=== PATIENT | female | born 1950 | race Caucasian/White ===

== ENCOUNTER → 2016-11-19 | Outpatient (CLI) | payer BC ==
--- NOTE | 2016-11-23 09:05 | MM ---
Reason for exam: screening (asymptomatic). Baseline mammogram. History: Patient is postmenopausal and is nulliparous. Benign excisional biopsy of the right breast, 2006. Physical Findings: Nurse did not find any significant physical abnormalities on exam. MG Screening Mammo w CAD Bilateral CC and MLO view(s) were taken. Prior study comparison: December 26, 1996, bilateral special view mammogram. The breast tissue is heterogeneously dense. This may lower the sensitivity of mammography. Finding: There are indeterminate calcifications in the upper outer quadrant of the left breast. These results were verbally communicated with the patient and result sheet given to the patient on 11/19/16. ASSESSMENT: Incomplete: need additional imaging evaluation, BI-RAD 0 RECOMMENDATION: Special view mammogram of the left breast. [facility] will attempt to contact patient to return for supplemental views.
--- NOTE | 2016-11-23 09:07 | MM ---
Reason for exam: additional evaluation requested from abnormal screening. Last mammogram was performed 19 years and 11 months ago. History: Patient is postmenopausal and is nulliparous. Benign excisional biopsy of the right breast, 2006. Physical Findings: Breast exam preformed at baseline screening. MG Work Up Mamm w CAD LT ML, MLO with magnification, and CC with magnification view(s) were taken of the left breast. Finding: There are intermediate concern, suspicious calcifications in the upper outer quadrant of the left breast. New finding. These results were verbally communicated with the patient and result sheet given to the patient on 11/19/16. ASSESSMENT: Suspicious, BI-RAD 4 RECOMMENDATION: Stereotactic core biopsy of the left breast. Called Dr. Reyes with mammographic findings and has scheduled an appointment for the patient for 11/26/[address] Arriaza. PRELIMINARY REPORT CALLED AND FAXED TO DR. ARRIAZA ON 11/23/16 AT 300/TP.
== END | disposition home or self-care (01) ==
LOC: RADMAMWWP 09:57
PROVIDERS: ATTEND Family Medicine
DX: Z12.31 Encounter for screening mammogram for malignant neoplasm of breast (principal)
CPT/HCPCS: G0202; G0206

== ENCOUNTER → 2016-12-24 | Day surgery (SDC) | payer BC ==
[~2016-12-24] MED LIST: BACITRACIN OINT 1 EACH PACKET TOPICAL ONE; LIDOCAINE 1%-EPI 1:100,000 20 ML VIAL ONE
--- NOTE | 2016-12-24 12:00 | MM ---
Stereotactic core biopsy left breast. HISTORY: Microcalcifications. The calcifications in question within the left breast were targeted by the undersigned. The examination was performed by the surgeon. Specimen radiograph demonstrates numerous calcifications within the specimen submitted. Post procedural mammogram demonstrates appropriate deployment of radiopaque clip marker. The patient tolerated the procedure well and left the department in stable condition. Pathology results are pending. IMPRESSION: Successful stereotactic core biopsy left breast with pathology results pending. Pathology Results: Benign BREAST, LEFT, CORE BIOPSY: FIBROCYSTIC CHANGES INCLUDING FOCAL FIBROADENOMATOID HYPERPLASIA WITH SCLEROSIS AND CALCIFICATIONS, FIBROSIS, AND SCLEROSING ADENOSIS WITH MICROCALCIFICATIONS. Recommendation Follow up mammogram of the left breast in 6 months. GAYE
== END ==
LOC: RADMAMWWP 09:24
PROVIDERS: ATTEND Surgery
DX: N62 Hypertrophy of breast (principal); N60.22 Fibroadenosis of left breast; N60.32 Fibrosclerosis of left breast; R92.8 Other abnormal and inconclusive findings on diagnostic imaging of breast; N64.89 Other specified disorders of breast; Z88.2 Allergy status to sulfonamides
CPT/HCPCS: 19081; A4648; 88305

== ENCOUNTER 2016-12-31 15:25 | Emergency (ER) | payer BC ==
--- NOTE | 2016-12-31 16:08 | XR ---
EXAMINATION TYPE: XR Hip LT and AP Pelvis DATE OF EXAM: 12/31/2016 4:04 PM COMPARISON: NONE HISTORY: Pain TECHNIQUE: A single AP view of the pelvis is obtained. Two views of the left hip are obtained. FINDINGS: There is no acute fracture/dislocation evident in the pelvis. The hip and sacroiliac join ts appear symmetric and unremarkable. The overlying soft tissue appears unremarkable. Two views of left hip and pelvis show no acute fracture or dislocation. No focal lytic or sclerotic lesion seen in the proximal left femur. Mild joint space narrowing. Degenerative changes lumbar spin e. Probable calcified fibroid of the uterus. The overlying soft tissue is unremarkable. IMPRESSION: There is no acute fracture or dislocation in the pelvis or left hip.
--- NOTE | 2016-12-31 16:26 | ED ---
General Adult HPI - General Chief complaint: Back Pain/Injury Stated complaint: Back/Hip pain Time Seen by Provider: 12/31/16 15:43 Source: patient, RN notes reviewed Mode of arrival: wheelchair Limitations: no limitations - History of Present Illness Initial comments: Patient 66-year-old female who presents emergency room today with chief complaint of increased lower back pain radiating to the left hip. Patient does admit to this pain has been off and on now for the last 6 weeks. Doesn't follow up with family doctor and did have a MRI performed of her back. She states she was told there are some degenerative changes. States been using ibuprofen 800 mg little relief the symptoms. She denies any other complaints or symptoms at this time. Denies any bowel or bladder incontinence or retention. Denies any saddle anesthesia. Patient denies any recent fever, chills, shortness of breath, chest pain, abdominal pain, nausea or vomiting, numbness or tingling, dysuria or hematuria, constipation or diarrhea, headaches or visual changes, or any other complaints. - Related Data Home Medications Medication Instructions Recorded Confirmed Cyanocobalamin (Vitamin B-12) 1,000 mcg PO DAILY 12/31/16 12/31/16 [Vitamin B-12] Meloxicam 15 mg PO DAILY 12/31/16 12/31/16 Metoprolol Succinate [Toprol XL] 50 mg PO DAILY 12/31/16 12/31/16 Multivits-Min/Iron/FA/Lutein 1 tab PO DAILY 12/31/16 12/31/16 [Centrum Silver Women Tablet] Tetrahydrozoline 0.05% Ophth 1 drop BOTH EYES QID PRN 12/31/16 12/31/16 [Visine Eye Drops] amLODIPine [Norvasc] 10 mg PO DAILY 12/31/16 12/31/16 Previous Rx's Medication Instructions Recorded Hydrocodone/Acetaminophen [[place] 1 each PO Q6HR PRN #20 tab 12/31/16 5-325] Allergies Allergy/AdvReac Type Severity Reaction Status Date / Time Sulfa (Sulfonamide Allergy Anaphylaxis Verified 12/31/16 16:18 Antibiotics) Review of Systems ROS Statement: Those systems with pertinent positive or pertinent negative responses have been documented in the HPI. ROS Other: All systems not noted in ROS Statement are negative. Past Medical History Past Medical History: Hypertension Additional Past Medical History / Comment(s): chronic back pain, bilateral arm fx. History of Any Multi-Drug Resistant Organisms: None Reported Past Surgical History: No Surgical Hx Reported Additional Past Surgical History / Comment(s): (R) arm surgery Past Psychological History: No Psychological Hx Reported Smoking Status: Never smoker Past Alcohol Use History: None Reported General Exam - General Exam Comments Initial Comments: General: The patient is awake and alert, in no distress, and does not appear acutely ill. Eye: Pupils are equal, round and reactive to light, extra-ocular movements are intact. No nystagmus. There is normal conjunctiva bilaterally. No signs of icterus. Ears, nose, mouth and throat: There are moist mucous membranes and no oral lesions. Neck: The neck is supple, there is no tenderness or JVD. Cardiovascular: There is a regular rate and rhythm. No murmur, rub or gallop is appreciated. Respiratory: Lungs are clear to auscultation, respirations are non-labored, breath sounds are equal. No wheezes, stridor, rales, or rhonchi. Musculoskeletal: Normal ROM. Tender to palpation T12 with mild tenderness down into the lumbar spine. Negative logroll maneuver. Strength 5/5. Sensation intact. Pulses equal bilaterally 2+. Neurological: A&O x 3. CN II-XII intact, There are no obvious motor or sensory deficits. Coordination appears grossly intact. Speech is normal. Skin: Skin is warm and dry and no rashes or lesions are noted. Psychiatric: Cooperative, appropriate mood & affect, normal judgment. Limitations: no limitations Course Vital Signs 12/31/16 15:40 Temperature 97.0 F L Pulse Rate 101 H Respiratory 18 Rate Blood Pressure 167/87 O2 Sat by Pulse 97 Oximetry Medical Decision Making - Medical Decision Making patient's MRI performed on 11/26/2016 was reviewed does show degenerative changes. Patient's x-ray of the left hip is negative for any acute abnormalities. Patient will be discharged home advised short prescription of pain medication to follow-up with radiologic electronic specialist for her back. Disposition Clinical Impression: Lumbar radiculopathy, acute Disposition: HOME SELF-CARE Condition: Good Instructions: Lumbar Radiculopathy (ED) Additional Instructions: Please follow-up with orthopedics over the next 2-5 days. Please return to emergency room symptoms increase or worsen or for any other concerns. Prescriptions: Hydrocodone/Acetaminophen [Leighton 5-325] 1 each PO Q6HR PRN #20 tab PRN Reason: Pain Referrals: Priscilla Reyes MD [Primary Care Provider] - 1-2 days Inez Phillips DO [Doctor of Osteopathic Medicine] - 1-2 days Time of Disposition: 16:24
[2016-12-31 16:36] VITALS: BP 152/78; PULSE 98; RESP 16; TEMP 97.2
== END 2016-12-31 16:30 | disposition home or self-care (01) ==
LOC: EC 15:25
DX: M54.16 Radiculopathy, lumbar region (principal); M25.552 Pain in left hip; I10 Essential (primary) hypertension; G89.29 Other chronic pain; Z79.1 Long term (current) use of non-steroidal anti-inflammatories (NSAID); Z79.899 Other long term (current) drug therapy; Z88.2 Allergy status to sulfonamides
CPT/HCPCS: 73502; 99284

== ENCOUNTER 2020-10-31 20:42 | Emergency (ER) | payer BC, MEDICARE ==
[2020-10-31 20:57] VITALS: TEMP 97.6
[2020-10-31] MEDS ORDERED: ONDANSETRON ODT 4 MG TAB PO STA (23:43)
--- NOTE | 2020-11-01 00:19 | ED ---
Psych HPI <Jose A Lopez - Last Filed: 11/01/20 05:19> - General Source: patient, EMS Mode of arrival: EMS <Krystle Storm - Last Filed: 11/01/20 19:16> - General Chief Complaint: Psychiatric Symptoms Stated Complaint: Mental Health/ETOH Time Seen by Provider: 10/31/20 21:58 - History of Present Illness Initial Comments: Patient is a 70-year-old female with history of alcohol abuse, presenting to the emergency department via EMS for psych evaluation. Patient's roommate called EMS stating that patient "needs to sober up" and that she was "going to jump off the porch." Patient denies any of this. She denies any suicidal or homicidal thoughts. She states she has been drinking a lot tonight. She denies any chest pain or shortness of breath, no nausea or vomiting. She has no other complaints at this time. Upon arrival to the ER, her vital signs are stable. (Krystle Storm) - Related Data Home Medications Medication Instructions Recorded Confirmed Cyanocobalamin (Vitamin B-12) 1,000 mcg PO DAILY 12/31/16 12/31/16 [Vitamin B-12] Meloxicam 15 mg PO DAILY 12/31/16 12/31/16 Metoprolol Succinate [Toprol XL] 50 mg PO DAILY 12/31/16 12/31/16 Multivit-Min/Iron/Folic/Lutein 1 tab PO DAILY 12/31/16 12/31/16 [Centrum Silver Women Tablet] Tetrahydrozoline 0.05% Ophth 1 drop BOTH EYES QID PRN 12/31/16 12/31/16 [Visine Eye Drops] amLODIPine [Norvasc] 10 mg PO DAILY 12/31/16 12/31/16 Previous Rx's Medication Instructions Recorded Hydrocodone/Acetaminophen [[place] 1 each PO Q6HR PRN #20 tab 12/31/16 5-325] Allergies Allergy/AdvReac Type Severity Reaction Status Date / Time Sulfa (Sulfonamide Allergy Anaphylaxis Verified 10/31/20 20:57 Antibiotics) Review of Systems ROS Other: All systems not noted in ROS Statement are negative. <Jose A Lopez - Last Filed: 11/01/20 05:19> ROS Other: All systems not noted in ROS Statement are negative. <Krystle Storm - Last Filed: 11/01/20 19:16> ROS Statement: Those systems with pertinent positive or pertinent negative responses have been documented in the HPI. Past Medical History Past Medical History: Hypertension Additional Past Medical History / Comment(s): chronic back pain, bilateral arm fx. History of Any Multi-Drug Resistant Organisms: None Reported Past Surgical History: No Surgical Hx Reported Additional Past Surgical History / Comment(s): (R) arm surgery Past Psychological History: No Psychological Hx Reported Smoking Status: Never smoker Past Alcohol Use History: Daily Past Drug Use History: None Reported <Krystle Storm - Last Filed: 11/01/20 19:16> General Exam <Krystle Storm - Last Filed: 11/01/20 19:16> - General Exam Comments Initial Comments: GENERAL: Patient is well-developed and well-nourished. Patient is nontoxic and in no acute distress, does appear intoxicated. HEAD: Atraumatic, normocephalic. EYES: Pupils equal round and reactive to light, extraocular movements intact, sclera anicteric, conjunctiva are normal. Eyelids were unremarkable. ENT: TMs normal, nares patent, oropharynx clear without exudates. Moist mucous me mbranes. NECK: Normal range of motion, supple without lymphadenopathy or JVD. LUNGS: Unlabored respirations. Breath sounds clear to auscultation bilaterally and equal. No wheezes rales or rhonchi. HEART: Regular rate and rhythm without murmurs, rubs or gallops. ABDOMEN: Soft, nontender, normoactive bowel sounds. No guarding, no rebound. No masses appreciated. : Deferred MUSCULOSKELETAL: Normal extremities with adequate strength and normal range of motion, no pitting or edema. No clubbing or cyanosis. NEUROLOGICAL: Patient is alert and oriented x 3. Motor and sensory are also intact. Cranial nerves II through XII grossly intact. Symmetrical smile. Normal speech, normal gait. PSYCH: Intoxicated SKIN: Warm, Dry, normal turgor, no rashes or lesions noted. (Krystle Storm) Course Vital Signs 10/31/20 11/01/20 11/01/20 20:47 00:12 05:32 Temperature 97.6 F Pulse Rate 133 H 111 H 82 Respiratory 20 20 16 Rate Blood Pressure 176/122 143/95 148/97 O2 Sat by Pulse 98 96 98 Oximetry Medical Decision Making <Krystle Storm - Last Filed: 11/01/20 19:16> - Medical Decision Making 70-year-old female here for medical intoxication, stating she'll throw himself off her porch. Patient arrived intoxicated. Patient was handed to Dr. Lopez at shift change, 3am. She was evaluated by EPS, discharged home. (Krystle Storm) Disposition Is patient prescribed a controlled substance at d/c from ED?: No <Jose A Lopez - Last Filed: 11/01/20 05:19> <Krystle Storm - Last Filed: 11/01/20 19:16> Clinical Impression: Alcohol intoxication, Mood disorder Disposition: HOME SELF-CARE Condition: Fair Instructions (If sedation given, give patient instructions): Alcohol Intoxication (ED) Referrals: Priscilla Reyes MD [Primary Care Provider] - 1-2 days
[2020-11-01] MEDS ORDERED: LORazepam 1 MG TAB PO STA (02:27)
[2020-11-01 06:51] VITALS: BP 148/97; PULSE 82; RESP 16
== END 2020-11-01 05:33 | disposition home or self-care (01) ==
LOC: EC 20:42
DX: F10.129 Alcohol abuse with intoxication, unspecified (principal); F39 Unspecified mood [affective] disorder; I10 Essential (primary) hypertension; Z79.1 Long term (current) use of non-steroidal anti-inflammatories (NSAID)
CPT/HCPCS: 82075; 99283

== ENCOUNTER → 2021-03-25 | Outpatient (CLI) | payer MEDICARE ==
--- NOTE | 2021-03-26 07:32 | NM ---
EXAMINATION TYPE: NM bone scan whole body DATE OF EXAM: 03/25/2021 COMPARISON: NONE HISTORY: Low back pain thoracic pain Delayed whole-body scanning was performed following the injection of 23.2 mCi Tc 99m MDP. Images wer e acquired 3.5 hours post injection. FINDINGS: There is increased radiotracer accumulation within the distal radius and ulna on the right. Correlate for acute fracture. Multiple focal areas of increased uptake are within the anterior rib ends bilaterally. This often is associated with posttraumatic change. There is increased radiotracer accumulation in the T12 region vertebral body. Correlate with plain fi lm. Acute compression deformity can't be considered. There is uptake within the mid and lower sternum. This is nonspecific. Posttraumatic and metastatic d isease can be considered. Other some mild uptake at the shoulders and within the posterior right and left lower cervical spine as well as some mild uptake in the region of the first carpal metacarpal junctions bilaterally joint spaces of the hands. These findings are most likely degenerative in nature. IMPRESSION: 1. Abnormal uptake in the region of T12, right radius and ulna. Consider plain film correlation. Acut e fractures at these levels could be considered. 2. Uptake at the anterior rib ends bilaterally may be posttraumatic in nature. 3. Uptake within the sternum is nonspecific. Significant trauma and metastatic disease could be consi dered. Plain film correlation is recommended.
== END | disposition home or self-care (01) ==
LOC: RADNMMAIN 12:01
PROVIDERS: ATTEND Physical Medicine & Rehabilitation
DX: M54.5 Low back pain (principal); M54.6 Pain in thoracic spine
CPT/HCPCS: 78306; A9503

== ENCOUNTER 2021-07-23 14:29 | Inpatient (IN) | payer MEDICARE ==
[2021-07-23 14:59] LABS: Basophils % (A) 0 %; Eosinophils # (A) 0.1 k/uL (0-0.7); Eosinophils % (A) 1 %; HGB 16.8 gm/dL (11.4-16.0); Lymphocytes # (A) 0.4 k/uL (1.0-4.8); Lymphocytes % (A) 2 %; MCH 33.6 pg (25.0-35.0); MCHC 35.7 g/dL (31.0-37.0); Mean Platelet Volume 7.3; Monocytes # (A) 0.4 k/uL (0-1.0); Monocytes % (A) 2 %; Neutrophils # (A) 15.7 k/uL (1.3-7.7); Neutrophils % (A) 94 %; Platelet Count 328 k/uL (150-450); RDW 12.8 % (11.5-15.5); WBC 16.6 k/uL (3.8-10.6)
[2021-07-23 15:09] LABS: ALT 39 U/L (4-34); AST 47 U/L (14-36); African American GFR (CKD) >90 (>60 ml/min/1.73 sqM); Albumin 4.2 g/dL (3.5-5.0); Alkaline Phosphatase 151 U/L (38-126); Anion Gap 14 mmol/L; Blood Urea Nitrogen 20 mg/dL (7-17); Calcium 9.5 mg/dL (8.4-10.2); Carbon Dioxide 24 mmol/L (22-30); Chloride 88 mmol/L (98-107); Glucose 216 mg/dL (74-99); Magnesium 1.9 mg/dL (1.6-2.3); Non-African American GFR(CKD) >90 (>60 ml/min/1.73 sqM); Sodium 126 mmol/L (137-145); Total Bilirubin 1.6 mg/dL (0.2-1.3)
[2021-07-23 15:13] LABS: Potassium 2.3 mmol/L (3.5-5.1)
[2021-07-23] MEDS ORDERED: SODIUM CHLORIDE 0.9% 1,000 ML IV STA (15:14)
[2021-07-23] MEDS ORDERED: POTASSIUM CHLORIDE 40 MEQ in WATER FOR INJECTION 1 100ML.BAG IVPB STA (15:14)
[2021-07-23 15:19] LABS: Partial Thromboplastin Time 22.8 sec (22.0-30.0); Prothrombin Time 10.8 sec (9.0-12.0)
--- NOTE | 2021-07-23 15:30 | ED ---
General Adult HPI - General Chief complaint: Chest Pain Stated complaint: Chest Pain Source: patient Mode of arrival: wheelchair Limitations: no limitations - History of Present Illness Initial comments: Dictation was produced using [employer] dictation software. please excuse any grammatical, word or spelling errors. Chief Complaint: 71-year-old female presents with chest pain and back pain History of Present Illness: Is a 71-year-old female presents to the emergency department for chest pain and back pain. She states that her symptoms are separate. Over the last week she's been having episodic chest pain and back pain. She states that her main complaint today is the back pain. Patient has history of chronic back pain requiring spinal injections. She has history of scoliosis. Patient states she does have some sharp pain. No shortness of breath. No numbness no paresthesias to the extremities. Patient states that her back pain is different feeling as though it is more severe than usual but in her typical location. Denies any fever. No nausea vomiting. Chest pain she reports is mild nonradiating with no associated diaphoresis. She reports that her back pain is in the mid thoracic back radiates across to both sides. The ROS documented in this emergency department record has been reviewed and confirmed by me. Those systems with pertinent positive or negative responses have been documented in the HPI. All other systems are other negative and/or noncontributory. PHYSICAL EXAM: General Impression: Alert and oriented x3, not in acute distress HEENT: Normocephalic atraumatic, extra-ocular movements intact, pupils equal and reactive to light bilaterally, mucous membranes moist. Cardiovascular: Heart regular rate and rhythm Chest: Able to complete full sentences, no retractions, no tachypnea Abdomen: abdomen soft, non-tender, non-distended, no organomegaly Musculoskeletal: Pulses present and equal in all extremities, no peripheral edema, tenderness to palpation of the mid to lower thoracic back, severe scoliosis Motor: no focal deficits noted Neurological: CN II-XII grossly intact, no focal motor or sensory deficits noted Skin: Intact with no visualized rashes Psych: Normal affect and mood ED course: 71-year-old well-appearing female presents to the emergency department for chest pain and back pain. Her chest pain is atypical with typical presentation. She has chronic history of back pain. States her pain is more severe than usual. Vital signs upon arrival shows heart rate of 120, rest of vital signs within acceptable limits. Initial EKG shows sinus tachycardia with ST depressions and lateral precordial leads. That EKG was performed at 1410. Repeat EKG at 1518 shows similar findings without any dynamic changes. There is no old EKG for comparison. Patient was in the waiting room for approximately 40 minutes. Advanced triage protocol was ordered. She was finally brought back to the room at approximately 3:20 PM. Advanced triage protocol labs shows leukocytosis 16.6. Coag panel is unremarkable. Metabolic panel shows an 126, potassium 2.3. Rest of labs within acceptable limits.Chart review was performed. Patient has an MRI done 11/26/2016. There is mild to advanced degenerative disc disease in the thoracic and lumbar spine. EKG interpretation: Ventricular rate 124, sinus tachycardia,. 152, QRS 94, QTC 453. No CO prolongation, no QTC prolongation. No old EKG for comparison in our electronic medical record. There does appear to be ST depressions in lateral precordial leads. Repeat EKG performed at 1518 shows no dynamic changes. Overall this EKG is concerning for cardiac ischemia. Laboratory evaluation obtained. Mild leukocytosis 16.6. Likely stress leukocytosis. Coag panel is negative. Metabolic panel shows potassium 2.3. Sodium 126. Restless within acceptable limits. Patient states that her pain was severe radiated to the back. Thoracic aorta angiogram ordered showing no dissection but did show multilevel degenerative changes. She also had dilated fluid-filled esophagus concerning for distal obstruction. Chest x-ray is unremarkable. Patient reevaluated bedside at 7:30 PM 5 beats stable medical condition. She reports that her symptoms are significantly improved with IV analgesics. Patient will be admitted observation for serial troponins, car diology consultation and cardiac monitoring. Patient will be admitted to Dr. Flores. Patient given aspirin. - Related Data Home Medications Medication Instructions Recorded Confirmed Metoprolol Succinate [Toprol XL] 50 mg PO DAILY 12/31/16 07/23/21 amLODIPine [Norvasc] 10 mg PO DAILY 12/31/16 07/23/21 Ibuprofen [Motrin Ib] 800 mg PO Q8H PRN 07/23/21 07/23/21 oxyCODONE-APAP 10-325MG [Percocet 1 tab PO QID 07/23/21 07/23/21 10-325 mg] Allergies Allergy/AdvReac Type Severity Reaction Status Date / Time Sulfa (Sulfonamide Allergy Anaphylaxis Verified 07/23/21 16:01 Antibiotics) Review of Systems ROS Statement: Those systems with pertinent positive or pertinent negative responses have been documented in the HPI. ROS Other: All systems not noted in ROS Statement are negative. Past Medical History Past Medical History: Hypertension Additional Past Medical History / Comment(s): chronic back pain, bilateral arm fx. History of Any Multi-Drug Resistant Organisms: None Reported Past Surgical History: No Surgical Hx Reported Additional Past Surgical History / Comment(s): (R) arm surgery Past Psychological History: No Psychological Hx Reported Smoking Status: Never smoker Past Alcohol Use History: Daily Past Drug Use History: None Reported General Exam Limitations: no limitations Course Vital Signs 07/23/21 07/23/21 14:33 18:14 Temperature 97.5 F L Pulse Rate 120 H 107 H Respiratory 19 18 Rate Blood Pressure 153/120 173/113 O2 Sat by Pulse 99 95 Oximetry Medical Decision Making - Lab Data Result diagrams: 07/23/21 14:50 07/23/21 14:50 Lab Results 07/23/21 07/23/21 07/23/21 Range/Units 14:50 14:50 14:50 WBC 16.6 H (3.8-10.6) k/uL RBC 5.00 (3.80-5.40) m/uL Hgb 16.8 H (11.4-16.0) gm/dL Hct 47.0 H (34.0-46.0) % MCV 94.0 (80.0-100.0) fL MCH 33.6 (25.0-35.0) pg MCHC 35.7 (31.0-37.0) g/dL RDW 12.8 (11.5-15.5) % Plt Count 328 (150-450) k/uL MPV 7.3 Neutrophils % 94 % Lymphocytes % 2 % Monocytes % 2 % Eosinophils % 1 % Basophils % 0 % Neutrophils # 15.7 H (1.3-7.7) k/uL Lymphocytes # 0.4 L (1.0-4.8) k/uL Monocytes # 0.4 (0-1.0) k/uL Eosinophils # 0.1 (0-0.7) k/uL Basophils # 0.0 (0-0.2) k/uL PT 10.8 (9.0-12.0) sec INR 1.0 (<1.2) APTT 22.8 (22.0-30.0) sec Sodium 126 L (137-145) mmol/L Potassium 2.3 L* (3.5-5.1) mmol/L Chloride 88 L (98-107) mmol/L Carbon Dioxide 24 (22-30) mmol/L Anion Gap 14 mmol/L BUN 20 H (7-17) mg/dL Creatinine 0.63 (0.52-1.04) mg/dL Est GFR (CKD-EPI)AfAm >90 (>60 ml/min/1.73 sqM) Est GFR (CKD-EPI)NonAf >90 (>60 ml/min/1.73 sqM) Glucose 216 H (74-99) mg/dL Calcium 9.5 (8.4-10.2) mg/dL Magnesium 1.9 (1.6-2.3) mg/dL Total Bilirubin 1.6 H (0.2-1.3) mg/dL AST 47 H (14-36) U/L ALT 39 H (4-34) U/L Alkaline Phosphatase 151 H (38-126) U/L Troponin I (0.000-0.034) ng/mL Total Protein 7.0 (6.3-8.2) g/dL Albumin 4.2 (3.5-5.0) g/dL 07/23/21 Range/Units 14:50 WBC (3.8-10.6) k/uL RBC (3.80-5.40) m/uL Hgb (11.4-16.0) gm/dL Hct (34.0-46.0) % MCV (80.0-100.0) fL MCH (25.0-35.0) pg MCHC (31.0-37.0) g/dL RDW (11.5-15.5) % Plt Count (150-450) k/uL MPV Neutrophils % % Lymphocytes % % Monocytes % % Eosinophils % % Basophils % % Neutrophils # (1.3-7.7) k/uL Lymphocytes # (1.0-4.8) k/uL Monocytes # (0-1.0) k/uL Eosinophils # (0-0.7) k/uL Basophils # (0-0.2) k/uL PT (9.0-12.0) sec INR (<1.2) APTT (22.0-30.0) sec Sodium (137-145) mmol/L Potassium (3.5-5.1) mmol/L Chloride (98-107) mmol/L Carbon Dioxide (22-30) mmol/L Anion Gap mmol/L BUN (7-17) mg/dL Creatinine (0.52-1.04) mg/dL Est GFR (CKD-EPI)AfAm (>60 ml/min/1.73 sqM) Est GFR (CKD-EPI)NonAf (>60 ml/min/1.73 sqM) Glucose (74-99) mg/dL Calcium (8.4-10.2) mg/dL Magnesium (1.6-2.3) mg/dL Total Bilirubin (0.2-1.3) mg/dL AST (14-36) U/L ALT (4-34) U/L Alkaline Phosphatase (38-126) U/L Troponin I <0.012 (0.000-0.034) ng/mL Total Protein (6.3-8.2) g/dL Albumin (3.5-5.0) g/dL Disposition Clinical Impression: Chest pain Disposition: ADMITTED IP TO THIS HOSP Condition: Fair Referrals: Kisha Rodriguez DO [Primary Care Provider] - 1-2 days
--- NOTE | 2021-07-23 15:39 | XR ---
EXAMINATION TYPE: XR chest 2V DATE OF EXAM: 07/23/2021 COMPARISON: 05/21/2016 INDICATION: Low back pain TECHNIQUE: Frontal and lateral views of the chest are obtained. FINDINGS: The heart size is normal. The pulmonary vasculature is normal. The lungs are clear. Hiatal hernia is present. Scoliosis of the thoracolumbar junction. In the lateral projection there is some wedge deformity of t he midthoracic vertebral levels. This was present on the 2015 examination appears similar. IMPRESSION: 1. Compression deformities appear old within the mid thoracic region. 2. No acute pulmonary process.
[2021-07-23] MEDS: POTASSIUM CHLORIDE 20 MEQ in WATER FOR INJECTION 1 100ML.BAG IVPB SCH ×2 (15:44→18:13)
[2021-07-23] MEDS ORDERED: METOPROLOL SUCCINATE (ER) 50 MG TAB.ER.24H PO STA (18:46)
[2021-07-23] MEDS ORDERED: amLODIPine 10 MG TAB PO STA (18:46)
--- NOTE | 2021-07-23 19:00 | CT ---
EXAMINATION TYPE: CT angio thor/abd pel aorta DATE OF EXAM: 07/23/2021 COMPARISON: None HISTORY: chest and back pain CT DLP: 724.2 mGycm Automated exposure control for dose reduction was used. Contrast: 100 mL [id number] Technique: Axial images 5 mm thick sections. Reconstructed images in coronal and sagittal planes. FINDINGS: Ascending thoracic aorta at the level of main pulmonary artery is 3.9 cm remaining pulmonary the bifu rcation is 2.5 cm. The aorta tapers normally through its visualized course. No dissections are eviden t. Iliac vessels and femoral vessels are patent to the extent of the field of view. There is a dilated fluid-filled esophagus. Evaluation for distal stenosis and achalasia could be perf ormed. Portion of the thyroid visualized is normal. No enlarged mediastinal or hilar nodes are eviden t. Coronary artery calcifications present. CT sections of the abdomen and pelvis appear unremarkable. Some fatty infiltration of liver may be pr esent. The adrenal glands are normal. Kidneys are normal. 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 There is prominence of the transverse colon. Urinary bladder is visualized normal. Uterus and adnexa are normal. Note is made of compression deformities within the mid thoracic and thoracolumbar junctio n regions. IMPRESSION: 1. NO AORTIC DISSECTION OR ANEURYSM. 2. DILATED FLUID-FILLED ESOPHAGUS. CONSIDER ADDITIONAL EVALUATION TO EVALUATE FOR DISTAL OBSTRUCTION.
[2021-07-23] MEDS ORDERED: HYDROmorphone 0.5 MG/0.5 ML SYRINGE IVP STA (19:05)
[2021-07-23] MEDS ORDERED: ONDANSETRON 4 MG/2 ML VIAL IVP STA (19:06)
[2021-07-23] MEDS ORDERED: ASPIRIN 81 MG PO STA (19:26)
[2021-07-23] MEDS ORDERED: ONDANSETRON 4 MG/2 ML VIAL IVP PRN (19:30)
[2021-07-23] MEDS ORDERED: NALOXONE 0.4 MG/ML 1 ML VIAL IV PRN (19:30)
[2021-07-24] MEDS: SODIUM CHLORIDE 0.9% 1,000 ML IV SCH ×2 (02:41→19:29)
[2021-07-24] MEDS: MORPHINE SULFATE 4 MG/ML SYRINGE IVP PRN ×2 (05:04→11:41)
[2021-07-24] MEDS ORDERED: METOPROLOL SUCCINATE (ER) 50 MG TAB.ER.24H PO SCH (09:00)
[2021-07-24] MEDS ORDERED: amLODIPine 10 MG TAB PO SCH (09:00)
[2021-07-24] MEDS: METOPROLOL TARTRATE 50 MG TAB PO SCH ×2 (09:38→21:43)
[2021-07-24] MEDS: amLODIPine 5 MG TAB PO SCH (09:38)
--- NOTE | 2021-07-24 10:00 | ECHOF ---
Referral Reason:LV function, chest pain MEASUREMENTS -------- HEIGHT: 157.5 cm WEIGHT: 49.9 kg BP: 135/94 RVIDd: 2.1 cm (< 3.3) IVSd: 1.1 cm (0.6 - 1.1) LVIDd: 4.4 cm (3.9 - 5.3) LVPWd: 1.1 cm (0.6 - 1.1) IVSs: 1.4 cm LVIDs: 2.8 cm LVPWs: 1.7 cm LA Diam: 2.7 cm (2.7 - 3.8) LAESV Index (A-L): 22.44 ml/m Ao Diam: 3.4 cm (2.0 - 3.7) AV Cusp: 2.1 cm (1.5 - 2.6) MV EXCURSION: 9.588 mm (> 18.000) MV EF SLOPE: 21 mm/s (70 - 150) EPSS: 0.7 cm MV E Arsen: 0.47 m/s MV DecT: 279 ms MV A Arsen: 0.91 m/s MV E/A Ratio: 0.52 RAP: 5.00 mmHg RVSP: 25.72 mmHg FINDINGS -------- Sinus rhythm. This was a technically adequate study. The left ventricular size is normal. There is borderline concentric left ventricular hypertrophy. Overall left ventricular systolic function is low-normal with, an EF between 50 - 55 %. Basal post erior LV wall motion is dyskinetic. Basal inferior LV wall motion is dyskinetic. The right ventricle is normal in size. Normal LA size by volume 22+/-6 ml/m2. The right atrium is normal in size. Interatrial and interventricular septum intact. The aortic valve is trileaflet, and appears structurally normal. No aortic stenosis or regurgitation. Joth-ut-dipewxar mitral regurgitation is present. Mild tricuspid regurgitation present. Right ventricular systolic pressure is normal at < 35 mmHg. There is no pulmonic regurgitation present. The aortic root size is normal. Normal inferior vena cava with normal inspiratory collapse consistent with estimated right atrial pre ssure of 5 mmHg. There is no pericardial effusion. CONCLUSIONS -------- 1. The left ventricular size is normal. 2. There is borderline concentric left ventricular hypertrophy. 3. Overall left ventricular systolic function is low-normal with, an EF between 50 - 55 %. 4. Basal posterior LV wall motion is dyskinetic. 5. Basal inferior LV wall motion is dyskinetic. 6. The aortic valve is trileaflet, and appears structurally normal. No aortic stenosis or regurgitati on. 7. Hxfd-bj-kqbysmcd mitral regurgitation is present. 8. Mild tricuspid regurgitation present. 9. There is no pericardial effusion. [employer] ADMINISTRATOR: Gita Jerez RDCS
--- NOTE | 2021-07-24 10:01 | P.CRDCN ---
History of Present Illness History of present illness: HISTORY OF PRESENTING ILLNESS This is a pleasant 71-year-old female past medical history significant for hypertension, chronic back pain follows with a pain specialists and is prescribed Percocet. 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 We have been asked to see in consultation for chest pain. Patient presents to the emergency department with complaints of lightheadedness, dizziness, chest pain, nausea, vomiting, diarrhea and back pain. Her symptoms started 1 week ago, she started to have diarrhea and nausea and vomiting, she felt lightheaded. Her symptoms somewhat resolved on their own. Yesterday, she had increased sharp back pain, unrelieved by her Percocet. She also had midsternal dull/throbbing chest pain. Non-radiating. Non-exertional. She did have associated shortness of breath, nausea and vomiting. She continued to feel lightheaded, states she felt "disoriented". Her chest pain is reproducible and increases with deep breathing. She denies any specific alleviated factors to the chest pain. She denies eating any abnormal food for her. She denies syncope, orthopnea, PND, palpitations, or abdominal pain. Her chest pain lasted all day yesterday it is now resolved. Denies history of [place], stroke, coronary artery disease or diabetes. She denies tobacco use, alcohol use, or illicit drug use. No family history of CAD. Her mother and father both had history of hypertension and strokes. On admission, patient found to be hyponatremic and hypokalemic. DIAGNOSTICS EKG reveals sinus tachycardia, heart rate 124, some mild ST depression in lateral leads, Left axis deviation, Poor R wave progression, no prior EKG to compare. No significant ST-T wave abnormalities Thoracic CT revealed dilated fluid filled esophagus. No dissection or aneurysm. Telemetry tracings indicate sinus mechanism, heart rate 90s. Chest xray old mid thoracic region compression deformities. No acute cardiopulmonary process. Laboratory reviewed, troponin negative 2, sodium 126, potassium 2.3, BUN 20, serum creatinine 0.6, magnesium 1.9, AST 47, ALT 39, alkaline phosphatase 151, WBC 16, hemoglobin 16, platelets 328 Echocardiogram revealed an EF of 5055 percent, basal posterior and basal. LV wall dyskinetic, mild to moderate mitral regurgitation, mild tricuspid regurgitation. Current home medications include Percocet, amlodipine 10 mg daily, metoprolol succinate 50 mg daily, when necessary ibuprofen REVIEW OF SYSTEMS At the time of my exam: CONSTITUTIONAL: Denies fever or chills. CARDIOVASCULAR: + chest pain,+ shortness of breath,Denies orthopnea, PND or palpitations. RESPIRATORY: Denies cough. GASTROINTESTINAL: Denies abdominal pain, Positive diarrhea, +nausea +vomiting. MUSCULOSKELETAL: Denies myalgias. NEUROLOGIC: Denies numbness, tingling, headache or weakness. ENDOCRINE: Denies fatigue, weight change, polydipsia or polyurina. GENITOURINARY: Denies burning, hematuria or urgency with micturation. HEMATOLOGIC: Denies history of anemia or bleeding. PHYSICAL EXAMINATION Blood pressure 135/94, heart rate 91, afebrile, saturations greater than 92% on room air CONSTITUTIONAL: No apparent distress. HEENT: Head is normocephalic. Pupils are equal, round. Sclerae anicteric. Mucous membranes of the mouth are moist. No JVD. No carotid bruit. CHEST EXAMINATION: Lungs are clear to auscultation. There is chest wall tenderness is noted on palpation and deep breathing HEART EXAMINATION: Regular rate and rhythm. S1, S2 heard. No murmurs, gallops or rub. ABDOMEN: Soft, nontender. Positive bowel sounds. EXTREMITIES: 2+ peripheral pulses, no lower extremity edema and no calf tenderness. SKIN:warm, dry NEUROLOGIC EXAMINATION: Patient is awake, alert and oriented x3. ASSESSMENT Chest pain, atypical, reproducible on exam Back pain Nausea, vomiting, diarrhea Hyponatremia Hypokalemia History of hypertension Sinus tachycardia CT thoracic revealed dilated fluid-filled esophagus concerning for distal obstruction PLAN -An acute coronary event has been ruled out with no EKG evidence of ischemia and negative cardiac enzymes. -Obtain 2D echocardiogram and doppler study to assess cardiac structure and function. -Change to metoprolol tartrate 50mg BID and Decrease amlodipine to 5mg daily -Replace electrolytes per protocol -Monitor BMP -We will not perform a stress test at this time, patient can follow up with Dr. Smith in the office and further discussion of stress test can be discussed. Thank you kindly for this consultation. Nurse Practitioner note has been reviewed, I agree with a documented findings and plan of care. Patient was seen and examined. Past Medical History Past Medical History: Hypertension Additional Past Medical History / Comment(s): chronic back pain, bilateral arm fx. History of Any Multi-Drug Resistant Organisms: None Reported Past Surgical History: No Surgical Hx Reported Additional Past Surgical History / Comment(s): bilateral arm surgery Past Anesthesia/Blood Transfusion Reactions: No Reported Reaction Past Psychological History: No Psychological Hx Reported Smoking Status: Never smoker Past Alcohol Use History: Daily Past Drug Use History: None Reported Medications and Allergies Home Medications Medication Instructions Recorded Confirmed Type Metoprolol Succinate [Toprol XL] 50 mg PO DAILY 12/31/16 07/23/21 History amLODIPine [Norvasc] 10 mg PO DAILY 12/31/16 07/23/21 History Ibuprofen [Motrin Ib] 800 mg PO Q8H PRN 07/23/21 07/23/21 History oxyCODONE-APAP 10-325MG [Percocet 1 tab PO QID 07/23/21 07/23/21 History 10-325 mg] Allergies Allergy/AdvReac Type Severity Reaction Status Date / Time Sulfa (Sulfonamide Allergy Anaphylaxis Verified 07/23/21 16:01 Antibiotics) Physical Exam Vitals: Vital Signs Temp Pulse Pulse Resp BP BP Pulse Ox 07/24/21 04:56 131/90 07/24/21 02:20 98.6 F 98 16 152/100 96 07/24/21 00:28 101 H 07/23/21 22:02 98.6 F 101 H 16 138/98 96 07/23/21 20:37 112 H 16 149/104 99 07/23/21 18:14 107 H 18 173/113 95 07/23/21 14:33 97.5 F L 120 H 19 153/120 99 Intake and Output 07/23/21 07/24/21 07/24/21 22:59 06:59 14:59 Other: Weight 49.895 kg Results 07/23/21 14:50 07/24/21 05:21 Cardiac Enzymes 07/23/21 07/23/21 Range/Units 14:50 14:50 AST 47 H (14-36) U/L Troponin I <0.012 (0.000-0.034) ng/mL Coagulation 07/23/21 Range/Units 14:50 PT 10.8 (9.0-12.0) sec APTT 22.8 (22.0-30.0) sec CBC 07/23/21 Range/Units 14:50 WBC 16.6 H (3.8-10.6) k/uL RBC 5.00 (3.80-5.40) m/uL Hgb 16.8 H (11.4-16.0) gm/dL Hct 47.0 H (34.0-46.0) % Plt Count 328 (150-450) k/uL Comprehensive Metabolic Panel 07/23/21 Range/Units 14:50 Sodium 126 L (137-145) mmol/L Potassium 2.3 L* (3.5-5.1) mmol/L Chloride 88 L (98-107) mmol/L Carbon Dioxide 24 (22-30) mmol/L BUN 20 H (7-17) mg/dL Creatinine 0.63 (0.52-1.04) mg/dL Glucose 216 H (74-99) mg/dL Calcium 9.5 (8.4-10.2) mg/dL AST 47 H (14-36) U/L ALT 39 H (4-34) U/L Alkaline Phosphatase 151 H (38-126) U/L Total Protein 7.0 (6.3-8.2) g/dL Albumin 4.2 (3.5-5.0) g/dL Current Medications Generic Name Dose Route Start Last Admin Trade Name Freq PRN Reason Stop Dose Admin Amlodipine Besylate 10 mg 07/24/21 09:00 Amlodipine 10 Mg Tab PO DAILY NORRIS Sodium Chloride 1,000 mls @ 20 mls/hr 07/23/21 19:30 07/24/21 02:41 Saline 0.9% IV 20 mls/hr .Q24H NORRIS Administration Metoprolol Succinate 50 mg 07/24/21 09:00 Metoprolol Succinate (Er) 50 Mg Tab.Er.24h PO DAILY NORRIS Morphine Sulfate 4 mg 07/24/21 04:30 07/24/21 05:04 Morphine Sulfate 4 Mg/Ml Syringe IVP 4 mg Q6HR PRN Administration Pain Naloxone HCl 0.2 mg 07/23/21 19:30 Naloxone 0.4 Mg/Ml 1 Ml Vial IV Q2M PRN Opioid Reversal Ondansetron HCl 4 mg 07/23/21 19:30 Ondansetron 4 Mg/2 Ml Vial IVP Q8HR PRN Nausea And Vomiting Intake and Output 07/23/21 07/24/21 07/24/21 22:59 06:59 14:59 Other: Weight 49.895 kg 07/23/21 14:50 07/23/21 14:50
[2021-07-24] MEDS ORDERED: POTASSIUM CHLORIDE 20 MEQ in WATER FOR INJECTION 1 100ML.BAG IVPB STA (11:04)
[2021-07-24] MEDS ORDERED: PANTOPRAZOLE 40 MG/10 ML VIAL IVP SCH (11:15)
[2021-07-24] MEDS: POTASSIUM CHLORIDE 20 MEQ in WATER FOR INJECTION 2 100ML.BAG IVPB SCH ×2 (11:37→13:53)
[2021-07-24] MEDS: POTASSIUM CHLORIDE ER 20 MEQ TAB.ER PO SCH ×3 (12:47→15:11)
[2021-07-24 13:33] VITALS: BMI 20.1
[2021-07-24 14:23] LABS: African American GFR (CKD) 120.7 (60.0-200.0); Anion Gap 18.7 mmol/L (10.00-18.00); BUN/Creat Ratio 24.41 Ratio (12.00-20.00); Blood Urea Nitrogen 10.4 mg/dL (9.0-27.0); Calcium 8.5 mg/dL (8.7-10.3); Carbon Dioxide 19.3 mmol/L (20.0-27.5); Non-African American GFR(CKD) 104.1 (60.0-200.0); Potassium 2.3 mmol/L (3.5-5.5)
[2021-07-24] MEDS: oxyCODONE-APAP 10-325MG 1 EACH TAB PO SCH ×3 (15:11→21:43)
--- NOTE | 2021-07-25 02:04 | P.HPIM ---
History of Present Illness H&P Date: 07/24/21 Chief Complaint: chest pain Elizabeth Lay is a 71 yo F with PMH of chronic low back pain on percocet, hypertension who presented to the ED after experiencing chest pain and mid- thoracic back pain over the past week. She complains her symptoms started as nausea, vomiting and diarrhea and then yesterday progressed dull substernal chest pain and thoracic back pain with associated shortness of breath. She did throw up again and then felt lightheaded and dizzy so came to the ED. She does not smoke cigarettes. Denies previous history of heart disease. On presentation pt tachycardic and hypertensive, WBC 16k, Na 126, K 2.6, Cr 0.6, AST 47, COVID negative. CXR and CT thoracic aorta no acute process. Review of Systems All systems: negative Constitutional: Reports malaise, Reports weakness, Denies chills, Denies fever Eyes: denies blurred vision, denies pain Ears, nose, mouth and throat: Denies headache, Denies sore throat Cardiovascular: Reports chest pain, Denies shortness of breath Respiratory: Denies cough Gastrointestinal: Reports nausea, Reports vomiting, Denies abdominal pain, Denies diarrhea Genitourinary: Denies dysuria, Denies hematuria Musculoskeletal: Denies myalgias Integumentary: Denies pruritus, Denies rash Neurological: Denies numbness, Denies weakness Psychiatric: Denies anxiety, Denies depression Endocrine: Denies fatigue, Denies weight change Past Medical History Past Medical History: Hypertension Additional Past Medical History / Comment(s): chronic back pain, bilateral arm fx. History of Any Multi-Drug Resistant Organisms: None Reported Past Surgical History: No Surgical Hx Reported Additional Past Surgical History / Comment(s): bilateral arm surgery Past Anesthesia/Blood Transfusion Reactions: No Reported Reaction Past Psychological History: No Psychological Hx Reported Smoking Status: Never smoker Past Alcohol Use History: Daily Past Drug Use History: None Reported Medications and Allergies Home Medications Medication Instructions Recorded Confirmed Type Metoprolol Succinate [Toprol XL] 50 mg PO DAILY 12/31/16 07/23/21 History amLODIPine [Norvasc] 10 mg PO DAILY 12/31/16 07/23/21 History Ibuprofen [Motrin Ib] 800 mg PO Q8H PRN 07/23/21 07/23/21 History oxyCODONE-APAP 10-325MG [Percocet 1 tab PO QID 07/23/21 07/23/21 History 10-325 mg] Allergies Allergy/AdvReac Type Severity Reaction Status Date / Time Sulfa (Sulfonamide Allergy Anaphylaxis Verified 07/23/21 16:01 Antibiotics) Physical Exam Vitals: Vital Signs Temp Pulse Resp BP Pulse Ox 07/24/21 20:50 98.0 F 100 20 113/81 95 07/24/21 15:39 16 07/24/21 14:01 98.3 F 87 16 112/80 98 07/24/21 07:00 98.3 F 91 18 135/94 95 07/24/21 04:56 131/90 07/24/21 02:20 98.6 F 98 16 152/100 96 Intake and Output 07/24/21 07/24/21 07/25/21 14:59 22:59 06:59 Intake Total 300 260 Balance 300 260 Intake: Intake, IV Titration 60 Amount Sodium Chloride 0.9% 1, 60 000 ml @ 20 mls/hr IV . Q24H [facility] Rx#:[id number] Oral 300 200 Other: Voiding Method Toilet # Voids 1 1 Weight 49.895 kg General: well nourished, well developed, NAD. Vitals reviewed Eyes: PERRL, EOMI, conjunctiva normal HENT: normocephalic, mucus membranes moist Neck: supple, no JVD Lungs: normal respiratory effort, no wheezes or rales CV: Regular rate and rhythm, no murmur. Peripheral pulses 2+ Abdomen: soft, nondistended, no organomegaly Lymph: no cervical or axillary LAD Skin: warm and dry. Neuro: A&Ox3, normal mood and affect Results CBC & Chem 7: 07/23/21 14:50 07/24/21 17:10 Labs: Abnormal Lab Results - Last 24 Hours (Table) 07/24/21 07/24/21 Range/Units 05:21 05:45 Sodium 130 L (135-145) mmol/L Potassium 2.2 L* 2.3 L* (3.5-5.5) mmol/L Chloride 92 L (96-109) mmol/L Carbon Dioxide 19.3 L (20.0-27.5) mmol/L Anion Gap 18.70 H (10.00-18.00) mmol/L Creatinine 0.4 L (0.6-1.5) mg/dL BUN/Creatinine Ratio 24.41 H (12.00-20.00) Ratio Glucose 116 H (70-110) mg/dL Calcium 8.5 L (8.7-10.3) mg/dL Thrombosis Risk Factor Assmnt - Choose All That Apply Each Risk Factor Represents 2 Points: Age 61-74 years Thrombosis Risk Factor Assessment Total Risk Factor Score: 2 Thrombosis Risk Factor Assessment Level: Low Risk Assessment and Plan Plan: 1. Chest pain. ACS ruled out. Cardiology consulted for further evaluation. Echo ordered 2. Hypovolemic hyponatremia. Hypokalemia. Suspect due to vomiting and diarrhea. Replete electrolytes, IV fluids 3. HTN. Continue Norvasc 4. Chronic low back pain. Continue home percocet, morphine for breakthrough
[2021-07-25 03:32] VITALS: RESP 18; TEMP 98.1
[2021-07-25] MEDS ORDERED: PANTOPRAZOLE 40 MG TABLET PO SCH (07:30)
[2021-07-25] MEDS: METOPROLOL TARTRATE 50 MG TAB PO SCH (08:26)
[2021-07-25] MEDS: oxyCODONE-APAP 10-325MG 1 EACH TAB PO SCH (08:27)
[2021-07-25] MEDS: amLODIPine 5 MG TAB PO SCH (08:27)
[2021-07-25 08:54] VITALS: BP 122/85; PULSE 96
[2021-07-25] MEDS ORDERED: HEPARIN SODIUM,PORCINE/PF 5,000 UNIT/0.5 ML SYRINGE SQ SCH (09:00)
[2021-07-25] MEDS ORDERED: ATORVASTATIN 20 MG TAB PO SCH (09:00)
[2021-07-25] MEDS ORDERED: ASPIRIN 81 MG PO SCH (09:00)
[2021-07-25] MEDS ORDERED: METOPROLOL TARTRATE 50 MG TAB PO SCH (09:00)
--- NOTE | 2021-07-25 10:20 | P.DS ---
Providers Date of admission: 07/24/21 11:32 Expected date of discharge: 07/25/21 Attending physician: Toro Flores MD Consults: 07/23/21 19:30 Consult Physician Routine Consulting Provider: Deejay Cordon Consult Reason/Comments: chest pain Do you want consulting provider notified?: Yes Primary care physician: Kisha Rodriguez [facility] Course: Final Diagnoses 1. Chest pain. ACS ruled out per cardiology 2. Hypovolemic hyponatremia. Hypokalemia. Suspect due to vomiting and diarrhea. Resolved 3. HTN. 4. Chronic low back pain. Hospital course:Elizabeth Lay is a 71 yo F with PMH of chronic low back pain on percocet, hypertension who presented to the ED after experiencing chest pain and mid-thoracic back pain over the past week. She complains her symptoms started as nausea, vomiting and diarrhea and then yesterday progressed dull substernal chest pain and thoracic back pain with associated shortness of breath. She did throw up again and then felt lightheaded and dizzy so came to the ED. She does not smoke cigarettes. Denies previous history of heart disease. On presentation pt tachycardic and hypertensive, WBC 16k, Na 126, K 2.6, Cr 0.6, AST 47, COVID negative. CXR and CT thoracic aorta no acute process. Received multiple potassium supplements, potassium now within normal limits, or 0.2. Magnesium yesterday 1.8, current magnesium level pending. Evaluated by cardiology, recommending further follow-up outpatient to discuss potential stress test. Echo reported low normal LV function, EF 50-55%, basal posterior and inferior LV wall motion dyskinetic ,[id number] mitral regurgitation. Significant clinical improvement. Denies chest pain, palpitations or shortness of breath. Pain improved, has not required morphine since midday yesterday, currently controlled on Percocet. Patient reports she's previously scheduled to see Dr. Phillips from orthopedic spine next week, which patient was encouraged to keep. Patient will be discharged home today in a stable condition with guarded prognosis The impression and plan of care has been dictated as directed. : I performed a history and examination of this patient, discussed the same with the dictator. I agree with the dictator's note ,documented as a scribe. Any additional findings or plans will be noted. Patient Condition at Discharge: Stable Plan - Discharge Summary Discharge Rx Participant: No New Discharge Prescriptions: New Atorvastatin [Lipitor] 20 mg PO DAILY 30 Days #30 tab Metoprolol Tartrate [Lopressor] 50 mg PO TID 30 Days #90 tab amLODIPine [Norvasc] 5 mg PO DAILY 30 Days #30 tab Ondansetron Odt [Zofran Odt] 4 mg PO Q8HR PRN #21 tab PRN Reason: Nausea Aspirin 81 mg PO DAILY 30 Days #30 tab Continue oxyCODONE-APAP 10-325MG [Percocet 10-325 mg] 1 tab PO QID Ibuprofen [Motrin Ib] 800 mg PO Q8H PRN PRN Reason: Pain Discontinued amLODIPine [Norvasc] 10 mg PO DAILY Metoprolol Succinate [Toprol XL] 50 mg PO DAILY Discharge Medication List Ibuprofen [Motrin Ib] 800 mg PO Q8H PRN 07/23/21 [History] oxyCODONE-APAP 10-325MG [Percocet 10-325 mg] 1 tab PO QID 07/23/21 [History] Aspirin 81 mg PO DAILY 30 Days #30 tab 07/25/21 [Rx] Atorvastatin [Lipitor] 20 mg PO DAILY 30 Days #30 tab 07/25/21 [Rx] Metoprolol Tartrate [Lopressor] 50 mg PO TID 30 Days #90 tab 07/25/21 [Rx] Ondansetron Odt [Zofran Odt] 4 mg PO Q8HR PRN #21 tab 07/25/21 [Rx] amLODIPine [Norvasc] 5 mg PO DAILY 30 Days #30 tab 07/25/21 [Rx] Follow up Appointment(s)/Referral(s): Karthik Smith MD [STAFF PHYSICIAN] - 1 Week (Office will call with appointment date and time.) Toro Flores MD [STAFF PHYSICIAN] - 3 Days Inez Phillips DO [Doctor of Osteopathic Medicine] - 1 Week (Patient states already previously scheduled)
--- NOTE | 2021-07-25 10:25 | P.PN ---
Subjective HISTORY OF PRESENTING ILLNESS This is a pleasant 71-year-old female past medical history significant for hypertension, chronic back pain follows with a pain specialists and is prescribed Percocet. 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 We have been asked to see in consultation for chest pain. Patient presents to the emergency department with complaints of lightheadedness, dizziness, chest pain, nausea, vomiting, diarrhea and back pain. Her symptoms started 1 week ago, she started to have diarrhea and nausea and vomiting, she felt lightheaded. Her symptoms somewhat resolved on their own. Yesterday, she had increased sharp back pain, unrelieved by her Percocet. She also had midsternal dull/throbbing chest pain. Non-radiating. Non-exertional. She did have associated shortness of breath, nausea and vomiting. She continued to feel lightheaded, states she felt "disoriented". Her chest pain is reproducible and increases with deep breathing. She denies any specific alleviated factors to the chest pain. She denies eating any abnormal food for her. She denies syncope, orthopnea, PND, palpitations, or abdominal pain. Her chest pain lasted all day yesterday it is now resolved. Denies history of ND, stroke, coronary artery disease or diabetes. She denies tobacco use, alcohol use, or illicit drug use. No family history of CAD. Her mother and father both had history of hypertension and strokes. On admission, patient found to be hyponatremic and hypokalemic. DIAGNOSTICS EKG reveals sinus tachycardia, heart rate 124, some mild ST depression in lateral leads, Q waves inferiorly, Left axis deviation, Poor R wave progression, no prior EKG to compare. 07/25/2021: Patient seen and examined at bedside, denies any chest pain or shortness of breath. Echocardiogram reviewed and revealed an EF of 5055 percent, basal posterior and basal inferior LV wall dyskinetic, mild to moderate mitral regurgitation, mild tricuspid regurgitation. Potassium 2-4.2 and magnesium 1.9. She is currently maintained on amlodipine 5 mg daily, metoprolol titrate 50 mg BID. Telemetry reviewed patient sinus mechanism, heart rate 90s-low 100s. PHYSICAL EXAMINATION Blood pressure 122/85, heart 96, afebrile, saturations greater than 92% on room air CONSTITUTIONAL: No apparent distress. HEENT: Neck Supple. No JVD. CHEST EXAMINATION: Lungs are clear to auscultation. HEART EXAMINATION: Regular rate and rhythm. S1, S2 heard. No murmurs, gallops or rub. ABDOMEN: Soft, nontender. Positive bowel sounds. EXTREMITIES: 2+ peripheral pulses, no lower extremity edema and no calf tenderness. NEUROLOGIC EXAMINATION: Patient is awake, alert and oriented x3. 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 Recommend starting aspirin 81mg daily, atorvastatin 20mg daily -Increase metoprolol tartrate 50mg TID and continue amlodipine to 5mg daily -Recommend follow up with Dr. Smith in the office in 1 week and further testing can be discussed. -Patient is stable from a cardiology perspective to be discharged home today. Thank you kindly for this consultation. Nurse Practitioner note has been reviewed, I agree with a documented findings and plan of care. Patient was seen and examined. Objective - Vital Signs Vital signs: Vital Signs Temp 98.1 F 07/25/21 07:00 Pulse 96 07/25/21 07:00 Resp 18 07/25/21 07:44 BP 122/85 07/25/21 07:00 Pulse Ox 97 07/25/21 07:00 Intake & Output 07/24/21 07/25/21 07/25/21 18:59 06:59 18:59 Intake Total 300 740 240 Balance 300 740 240 Weight 49.895 kg Intake: Intake, IV Titration 300 Amount Sodium Chloride 0.9% 1, 300 000 ml @ 20 mls/hr IV . Q24H [facility] Rx#:[id number] Oral 300 440 240 Other: Voiding Method Toilet # Voids 1 2 - Labs CBC & Chem 7: 07/23/21 14:50 07/24/21 17:10 Labs: Abnormal Lab Results - Last 24 Hours (Table) 07/24/21 07/24/21 Range/Units 05:21 05:45 Sodium 130 L (135-145) mmol/L Potassium 2.2 L* 2.3 L* (3.5-5.5) mmol/L Chloride 92 L (96-109) mmol/L Carbon Dioxide 19.3 L (20.0-27.5) mmol/L Anion Gap 18.70 H (10.00-18.00) mmol/L Creatinine 0.4 L (0.6-1.5) mg/dL BUN/Creatinine Ratio 24.41 H (12.00-20.00) Ratio Glucose 116 H (70-110) mg/dL Calcium 8.5 L (8.7-10.3) mg/dL
[2021-07-25 10:49] LABS: African American GFR (CKD) 114.5 (60.0-200.0); Albumin 3.2 g/dL (3.8-4.9); Albumin/Globulin Ratio 1.68 (1.60-3.17); Anion Gap 9.4 mmol/L (10.00-18.00); BUN/Creat Ratio 30.2 Ratio (12.00-20.00); Blood Urea Nitrogen 15.1 mg/dL (9.0-27.0); Calcium 8.8 mg/dL (8.7-10.3); Carbon Dioxide 19.6 mmol/L (20.0-27.5); Globulin 1.9 g/dL (1.6-3.3); Non-African American GFR(CKD) 98.8 (60.0-200.0); Potassium 3.8 mmol/L (3.5-5.5); Total Bilirubin 0.8 mg/dL (0.30-1.20); Total Protein 5.1 g/dL (6.2-8.2)
[2021-07-25 16:40] LABS: Chol/HDL Ratio 1.71 Ratio; LDL Cholesterol,Calculated 29.8 mg/dL (0.0-131.0); VLDL Calculation 14.46 mg/dL (5.00-40.00)
== END 2021-07-25 12:40 | disposition home or self-care (01) | DRG 313 ==
LOC: EC 14:29 → 6NMEDSUR 19:31 → OBSVTOIN 07-24 11:32
PROVIDERS: ADMIT Family Medicine; ATTEND Family Medicine
DX: R07.89 Other chest pain (principal); E87.1 Hypo-osmolality and hyponatremia; E86.1 Hypovolemia; M41.9 Scoliosis, unspecified; I10 Essential (primary) hypertension; Z20.822 Contact with and (suspected) exposure to COVID-19; I08.1 Rheumatic disorders of both mitral and tricuspid valves; I25.2 Old myocardial infarction; K22.2 Esophageal obstruction; M51.36 Other intervertebral disc degeneration, lumbar region; R19.7 Diarrhea, unspecified; R11.10 Vomiting, unspecified; R00.0 Tachycardia, unspecified; I25.10 Atherosclerotic heart disease of native coronary artery without angina pectoris; D72.829 Elevated white blood cell count, unspecified; E87.6 Hypokalemia; G89.29 Other chronic pain; Z79.891 Long term (current) use of opiate analgesic; Z79.899 Other long term (current) drug therapy; Z88.2 Allergy status to sulfonamides; Z87.81 Personal history of (healed) traumatic fracture
CPT/HCPCS: 36415; 71046; 71275; 74174; 80048; 80053; 80061; 83735; 84132; 84443; 84484; 85025; 85610; 85730; 87635; 93005; 93306; 96361; 96365; 96375; 99285

== ENCOUNTER 2021-11-05 22:29 | Emergency (ER) | payer MEDICARE ==
[2021-11-05] MEDS ORDERED: SODIUM CHLORIDE 0.9% 1,000 ML IV ONE (22:42)
[2021-11-05] MEDS ORDERED: THIAMINE 100 MG/ML 2 ML VIAL IVP STA (22:42)
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
[2021-11-05 23:23] LABS: HCT 37.3 % (34.0-46.0); HGB 12.9 gm/dL (11.4-16.0); MCH 32.7 pg (25.0-35.0); MCHC 34.6 g/dL (31.0-37.0); MCV 94.7 fL (80.0-100.0); Platelet Count 420 k/uL (150-450); RBC 3.94 m/uL (3.80-5.40); RDW 12.6 % (11.5-15.5); WBC 6.2 k/uL (3.8-10.6)
[2021-11-05 23:33] LABS: Albumin 3.4 g/dL (3.5-5.0); Calcium 8.4 mg/dL (8.4-10.2); Total Bilirubin 0.9 mg/dL (0.2-1.3); Total Protein 6.3 g/dL (6.3-8.2)
[2021-11-05 23:44] LABS: Potassium 2.7 mmol/L (3.5-5.1)
[2021-11-05] MEDS ORDERED: POTASSIUM CHLORIDE ER 20 MEQ TAB.ER PO STA (23:47)
[2021-11-05 23:50] LABS: Eosinophils # (M) 0.19 k/uL (0-0.7); Lymphocytes # (M) 3.35 k/uL (1.0-4.8); Monocytes # (M) 0.19 k/uL (0-1.0); Neutrophils # (M) 2.48 k/uL (1.3-7.7); Neutrophils % (M) 40 %; Nucleated Red Blood Cells 0 /100 WBC (0-0); Total Cells Counted 100
[2021-11-06] MEDS ORDERED: POTASSIUM CHLORIDE 10 MEQ in WATER FOR INJECTION 1 100ML.BAG IVPB STA (00:19)
[2021-11-06] MEDS: MAGNESIUM SULFATE-D5W PMX 1 GM in DEXTROSE/WATER 1 100ML.BAG IVPB SCH ×2 (00:37→03:50)
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
[2021-11-06 03:52] VITALS: TEMP 98
[2021-11-06 07:27] VITALS: BP 140/70; PULSE 78; RESP 18
== END 2021-11-06 05:55 | disposition home or self-care (01) ==
LOC: EC 22:29
DX: F10.129 Alcohol abuse with intoxication, unspecified (principal); E87.6 Hypokalemia; R45.1 Restlessness and agitation; I10 Essential (primary) hypertension; Y90.8 Blood alcohol level of 240 mg/100 ml or more; Z79.82 Long term (current) use of aspirin; Z79.899 Other long term (current) drug therapy
CPT/HCPCS: 99285 ×2; 96374 ×2; 96361 ×2; 36415; 93005; 80053; 84484; 85025; 72170; 71045; 72125; 70450; G0480; J3411; J3475; J3480; 80320

== ENCOUNTER 2022-11-13 18:01 | Inpatient (IN) | payer MEDICARE ==
[2022-11-13] MEDS ORDERED: SODIUM CHLORIDE 0.9% 1,000 ML IV STA (18:20)
[2022-11-13] MEDS ORDERED: HYDROmorphone 0.5 MG/0.5 ML SYRINGE IVP STA (18:22)
--- NOTE | 2022-11-13 18:27 | ED ---
General Adult HPI - General Chief complaint: Extremity Problem,Nontraumatic Stated complaint: numbness in hands, pain all over Time Seen by Provider: 11/13/22 18:14 Source: patient, RN notes reviewed Mode of arrival: wheelchair Limitations: no limitations - History of Present Illness Initial comments: Patient is a pleasant 72-year-old female presenting to the emergency Department with several complaints. Patient does have chronic back and shoulder pain that is bothering her. Patient over the past week or 2 has had some increased discomfort of her neck region. Patient has also felt off balance. Patient has had some mild weakness of both forearms, more so on the right side. No leg weakness. He should has not fallen. - Related Data Home Medications Medication Instructions Recorded Confirmed Ibuprofen [Motrin Ib] 800 mg PO Q8H PRN 07/23/21 07/23/21 oxyCODONE-APAP 10-325MG [Percocet 1 tab PO QID 07/23/21 07/23/21 10-325 mg] Previous Rx's Medication Instructions Recorded Aspirin 81 mg PO DAILY 30 Days #30 tab 07/25/21 Atorvastatin [Lipitor] 20 mg PO DAILY 30 Days #30 tab 07/25/21 Metoprolol Tartrate [Lopressor] 50 mg PO TID 30 Days #90 tab 07/25/21 Ondansetron Odt [Zofran Odt] 4 mg PO Q8HR PRN #21 tab 07/25/21 amLODIPine [Norvasc] 5 mg PO DAILY 30 Days #30 tab 07/25/21 Potassium Chloride [Klor-Con 20] 20 meq PO DAILY #5 tab 11/05/21 Magnesium Oxide 400 mg PO DAILY #7 tablet 11/06/21 Allergies Allergy/AdvReac Type Severity Reaction Status Date / Time Sulfa (Sulfonamide Allergy Anaphylaxis Verified 11/13/22 18:07 Antibiotics) Review of Systems ROS Statement: Those systems with pertinent positive or pertinent negative responses have been documented in the HPI. ROS Other: All systems not noted in ROS Statement are negative. Constitutional: Denies: fever Eyes: Denies: eye pain ENT: Denies: ear pain Respiratory: Denies: cough Cardiovascular: Denies: chest pain Endocrine: Denies: fatigue Gastrointestinal: Denies: abdominal pain Genitourinary: Denies: dysuria Musculoskeletal: Reports: as per HPI. Denies: back pain Neurological: Reports: as per HPI, weakness. Denies: headache Past Medical History Past Medical History: Hypertension Additional Past Medical History / Comment(s): chronic back pain, bilateral arm fx., clavical fx History of Any Multi-Drug Resistant Organisms: None Reported Past Surgical History: Orthopedic Surgery Additional Past Surgical History / Comment(s): bilateral arm surgery Past Anesthesia/Blood Transfusion Reactions: No Reported Reaction Past Psychological History: No Psychological Hx Reported Smoking Status: Never smoker Past Alcohol Use History: Daily Past Drug Use History: None Reported General Exam Limitations: no limitations General appearance: alert, in no apparent distress Head exam: Present: normocephalic Eye exam: Present: normal appearance, PERRL, EOMI ENT exam: Present: normal oropharynx Neck exam: Present: normal inspection, tenderness (Minimal tenderness diffusely) Respiratory exam: Present: normal lung sounds bilaterally Cardiovascular Exam: Present: regular rate, normal rhythm Expanded Peripheral pulses: 2+: Radial (R), Radial (L) GI/Abdominal exam: Present: soft. Absent: tenderness Extremities exam: Present: other (Surgical scar right wrist, chronic) Neurological exam: Present: alert, CN II-XII intact Expanded Neurological exam: Present: protecting the airway Patient oriented to: Present: person, place, time Speech: Present: fluid speech Cranial nerves: EOM's Intact: Normal Motor strength exam: RUE: 5 (Minimal decreased account services manager strength on the right), LUE: 5, RLE: 5, LLE: 5 Eye Response: (4) open spontaneously Motor Response: (6) obeys commands Verbal Response: (5) oriented Psychiatric exam: Present: normal affect, normal mood Skin exam: Present: normal color Course Vital Signs 11/13/22 18:03 Temperature 98.2 F Pulse Rate 79 Respiratory 20 Rate Blood Pressure 151/100 O2 Sat by Pulse 96 Oximetry EKG Findings - EKG Results: EKG: interpreted by ERMD (Left axis. Full described here for LVH. Inferior Q waves.), sinus rhythm, normal ST/T Medical Decision Making - Medical Decision Making Was pt. sent in by a medical professional or institution (, PA, [employer], urgent care, hospital, or longterm...) When possible be specific @ -No Did you speak to anyone other than the patient for history (EMS, parent, family, police, friend...)? What history was obtained from this source @ -No Did you review nursing and triage notes (agree or disagree)? Why? @ -I reviewed and agree with nursing and triage notes Were old charts reviewed (outside hosp., previous admission, EMS record, old EKG, old radiological studies, urgent care reports/EKG's, longterm records)? Report findings @ -No old charts were reviewed Differential Diagnosis (chest pain, altered mental status, abdominal pain women, abdominal pain men, vaginal bleeding, weakness, fever, dyspnea, syncope, headache, dizziness, GI bleed, back pain, seizure, CVA, palpatations, mental health)? @ -Differential Weakness: Hypoglycemia, shock, sepsis, hyponatremia, anemia, infection, VT, ETOH, adverse medicine reaction, overdose, stroke, this is not meant to be an all-inclusive list. EKG interpreted by me (3pts min.). @ -As above X-rays interpreted by me (1pt min.). @ -Chest x-ray shows no acute process CT interpreted by me (1pt min.). @ -Reports reviewed U/S interpreted by me (1pt. min.). @ -None done What testing was considered but not performed or refused? (CT, X-rays, U/S, labs)? Why? @ -None What meds were considered but not given or refused? Why? @ -None Did you discuss the management of the patient with other professionals (professionals i.e. , PA, [employer], lab, RT, psych nurse, social service manager, embedded linux engineer, teacher, complaint investigations officer, medical case worker)? Give summary @ -Case discussed with practitioner discectomy with [facility], who will admit covering for Dr. Jackson Was smoking cessation discussed for >3mins.? @ -No Was critical care preformed (if so, how long)? @ -No Were there social determinants of health that impacted care today? How? (Homelessness, low income, unemployed, alcoholism, drug addiction, transportation, low edu. Level, literacy, decrease access to med. care, care home, rehab)? @ -No Was there de-escalation of care discussed even if they declined (Discuss DNR or withdrawal of care, Hospice)? DNR status @ -No What co-morbidities impacted this encounter? (DM, HTN, Smoking, COPD, CAD, Cancer, CVA, ARF, Chemo, Hep., AIDS, mental health diagnosis, sleep apnea, morbid obesity)? @ -None Was patient admitted / discharged? Hospital course, mention meds given and route, prescriptions, significant lab abnormalities, going to OR and other per tinent info. @ -Patient reevaluated and unchanged. There is several concerning factors that could be related and patient will evaluate from neurology and orthopedics evaluation Undiagnosed new problem with uncertain prognosis? @ -No Drug Therapy requiring intensive monitoring for toxicity (Heparin, Nitro, Insulin, Cardizem)? @ -No Were any procedures done? @ -No Diagnosis/symptom? @ -Arm weakness Acute, or Chronic, or Acute on Chronic? @ -Acute Uncomplicated (without systemic symptoms) or Complicated (systemic symptoms)? @ -default Side effects of treatment? @ -No Exacerbation, Progression, or Severe Exacerbation? @ -No Poses a threat to life or bodily function? How? (Chest pain, USA, VT, pneumonia, PE, COPD, DKA, ARF, appy, cholecystitis, CVA, Diverticulitis, Homicidal, Suicidal, threat to staff... and all critical care pts) @ -No - Lab Data Result diagrams: 11/13/22 18:28 11/13/22 18:28 Lab Results 11/13/22 11/13/22 11/13/22 Range/Units 18:28 18:28 18:28 WBC 6.8 (3.8-10.6) k/uL RBC 4.40 (3.80-5.40) m/uL Hgb 13.0 (11.4-16.0) gm/dL Hct 38.4 (34.0-46.0) % MCV 87.3 (80.0-100.0) fL MCH 29.4 (25.0-35.0) pg MCHC 33.7 (31.0-37.0) g/dL RDW 12.9 (11.5-15.5) % Plt Count 348 (150-450) k/uL MPV 7.0 Neutrophils % 63 % Lymphocytes % 26 % Monocytes % 6 % Eosinophils % 2 % Basophils % 0 % Neutrophils # 4.3 (1.3-7.7) k/uL Lymphocytes # 1.8 (1.0-4.8) k/uL Monocytes # 0.4 (0-1.0) k/uL Eosinophils # 0.1 (0-0.7) k/uL Basophils # 0.0 (0-0.2) k/uL PT 10.0 (9.0-12.0) sec INR 0.9 (<1.2) APTT 25.5 (22.0-30.0) sec Sodium 136 L (137-145) mmol/L Potassium 3.6 (3.5-5.1) mmol/L Chloride 102 (98-107) mmol/L Carbon Dioxide 26 (22-30) mmol/L Anion Gap 8 mmol/L BUN 10 (7-17) mg/dL Creatinine 0.57 (0.52-1.04) mg/dL Est GFR (CKD-EPI)AfAm >90 (>60 ml/min/1.73 sqM) Est GFR (CKD-EPI)NonAf >90 (>60 ml/min/1.73 sqM) Glucose 102 H (74-99) mg/dL Calcium 9.3 (8.4-10.2) mg/dL Total Bilirubin 0.7 (0.2-1.3) mg/dL AST 24 (14-36) U/L ALT 22 (4-34) U/L Alkaline Phosphatase 102 (38-126) U/L Creatine Kinase (30-135) U/L Troponin I (0.000-0.034) ng/mL Total Protein 6.9 (6.3-8.2) g/dL Albumin 4.2 (3.5-5.0) g/dL 11/13/22 11/13/22 Range/Units 18:28 18:30 WBC (3.8-10.6) k/uL RBC (3.80-5.40) m/uL Hgb (11.4-16.0) gm/dL Hct (34.0-46.0) % MCV (80.0-100.0) fL MCH (25.0-35.0) pg MCHC (31.0-37.0) g/dL RDW (11.5-15.5) % Plt Count (150-450) k/uL MPV Neutrophils % % Lymphocytes % % Monocytes % % Eosinophils % % Basophils % % Neutrophils # (1.3-7.7) k/uL Lymphocytes # (1.0-4.8) k/uL Monocytes # (0-1.0) k/uL Eosinophils # (0-0.7) k/uL Basophils # (0-0.2) k/uL PT (9.0-12.0) sec INR (<1.2) APTT (22.0-30.0) sec Sodium (137-145) mmol/L Potassium (3.5-5.1) mmol/L Chloride (98-107) mmol/L Carbon Dioxide (22-30) mmol/L Anion Gap mmol/L BUN (7-17) mg/dL Creatinine (0.52-1.04) mg/dL Est GFR (CKD-EPI)AfAm (>60 ml/min/1.73 sqM) Est GFR (CKD-EPI)NonAf (>60 ml/min/1.73 sqM) Glucose (74-99) mg/dL Calcium (8.4-10.2) mg/dL Total Bilirubin (0.2-1.3) mg/dL AST (14-36) U/L ALT (4-34) U/L Alkaline Phosphatase (38-126) U/L Creatine Kinase 57 (30-135) U/L Troponin I <0.012 (0.000-0.034) ng/mL Total Protein (6.3-8.2) g/dL Albumin (3.5-5.0) g/dL Disposition Clinical Impression: Bilateral arm weakness Disposition: ADMITTED IP TO THIS HOSP Is patient prescribed a controlled substance at d/c from ED?: No Referrals: Flex Jackson MD [Primary Care Provider] - 1-2 days Time of Disposition: 20:47
[2022-11-13 19:13] LABS: Basophils % (A) 0 %; Eosinophils # (A) 0.1 k/uL (0-0.7); Eosinophils % (A) 2 %; HCT 38.4 % (34.0-46.0); Lymphocytes # (A) 1.8 k/uL (1.0-4.8); Lymphocytes % (A) 26 %; MCH 29.4 pg (25.0-35.0); MCHC 33.7 g/dL (31.0-37.0); MCV 87.3 fL (80.0-100.0); Monocytes # (A) 0.4 k/uL (0-1.0); Monocytes % (A) 6 %; Neutrophils # (A) 4.3 k/uL (1.3-7.7); Neutrophils % (A) 63 %; Platelet Count 348 k/uL (150-450); RDW 12.9 % (11.5-15.5); WBC 6.8 k/uL (3.8-10.6)
[2022-11-13 19:24] LABS: ALT 22 U/L (4-34); AST 24 U/L (14-36); African American GFR (CKD) >90 (>60 ml/min/1.73 sqM); Albumin 4.2 g/dL (3.5-5.0); Alkaline Phosphatase 102 U/L (38-126); Anion Gap 8 mmol/L; Blood Urea Nitrogen 10 mg/dL (7-17); Calcium 9.3 mg/dL (8.4-10.2); Carbon Dioxide 26 mmol/L (22-30); Chloride 102 mmol/L (98-107); Glucose 102 mg/dL (74-99); Non-African American GFR(CKD) >90 (>60 ml/min/1.73 sqM); Potassium 3.6 mmol/L (3.5-5.1); Sodium 136 mmol/L (137-145); Total Bilirubin 0.7 mg/dL (0.2-1.3); Total Protein 6.9 g/dL (6.3-8.2)
[2022-11-13 19:25] LABS: INR 0.9 (<1.2); Partial Thromboplastin Time 25.5 sec (22.0-30.0)
--- NOTE | 2022-11-13 20:22 | CT ---
EXAMINATION TYPE: CT brain wo con DATE OF EXAM: 11/13/2022 COMPARISON: 11/06/2021 HISTORY: Numbness in hands. CT DLP: 1541.5 mGycm Automated exposure control for dose reduction was used. Images of the brain obtained with no contrast. There is patchy hypodensity in the periventricular white matter. There is no mass effect or midline s hift. No sign of intracranial hemorrhage. Calvarium is intact. Skull base is intact. There is normal aeration of the mastoid sinuses. IMPRESSION: Extensive white matter hypodensity could relate to microvascular ischemia or demyelinating disease. T here is some progression compared to old exam.
--- NOTE | 2022-11-13 20:29 | XR ---
EXAMINATION TYPE: XR chest 2V DATE OF EXAM: 11/13/2022 COMPARISON: 04/08/2022 HISTORY: Altered mental status TECHNIQUE: FINDINGS: There is large hiatal hernia. Lungs are clear of infiltrate. No heart failure. Heart size i s normal. Bony thorax is intact. No pleural effusion. IMPRESSION: No active cardiopulmonary disease. Hiatal hernia. No adverse change.
--- NOTE | 2022-11-13 20:40 | CT ---
EXAMINATION TYPE: CT angio head neck DATE OF EXAM: 11/13/2022 COMPARISON: None HISTORY: Numbness in hands. CT DLP: 1541.5 mGycm Automated exposure control for dose reduction was used. CONTRAST: Performed with IV Contrast, patient injected with 65cc mL of Isovue 370. Images obtained from the aortic arch to the vertex of the brain with IV contrast. There are Three-D p ostprocessed images. There is 4.3 cm aneurysm of the ascending aorta. No dissection. There is normal branching pattern of the great vessels on the aortic arch. There is arterial flow in both subclavian arteries. There is ar terial flow in the common internal and external carotid arteries bilaterally. There is tortuosity of the proximal left internal carotid artery. There is moderate plaque formation at the origin of the ri ght internal carotid artery on the medial wall with approximate 70% stenosis. No significant stenosis seen at the origin of the left internal carotid artery. There is arterial flow in both vertebral art eries. There is arterial flow in the vertebrobasilar artery system. No evidence of carotid or vertebr al artery aneurysm or dissection. There is arterial flow in the anterior middle and posterior cerebral arteries bilaterally. There is a rterial flow in the posterior communicating arteries. The right posterior cerebral artery appears to fill significantly through the right posterior communicating artery. No mass effect. No evidence of intracranial aneurysm or neovascularity. No evidence of hemodynamic ar terial stenosis. There is normal enhancement of the venous sinuses. IMPRESSION: Extensive irregular plaque at the right carotid artery bifurcation with approximate 70% stenosis in t he proximal right internal carotid artery. No evidence of any significant stenosis of the left internal carotid artery. No significant intracranial angiographic abnormality. There is noted in the C4-5 second degree spondylolisthesis and some narrowing of the spinal canal.
[2022-11-13] MEDS ORDERED: HYDROmorphone 0.5 MG/0.5 ML SYRINGE IVP PRN (20:48)
[2022-11-13] MEDS ORDERED: NALOXONE 0.4 MG/ML 1 ML VIAL IV PRN (20:48)
[2022-11-13] MEDS ORDERED: ACETAMINOPHEN TAB 325 MG TAB PO PRN (20:48)
[2022-11-14] MEDS: HYDROmorphone 1 MG/ML 1 ML SYRINGE IVP PRN ×2 (02:06→05:58)
--- NOTE | 2022-11-14 07:11 | P.CRDCN ---
History of Present Illness Consult date: 11/14/22 Chief complaint: Bilateral arm numbness and neck pain History of present illness: The patient is a very pleasant 72-year-old female patient with a past medical history significant for hypertension and dyslipidemia presented to the hospital complaining of bilateral hand numbness and neck discomfort. She was in her usual state of health until last night when she woke up from sleep complaining of numbness affecting both arms/hands. That was associated with pain in the neck. No pain in the chest. No shortness of breath. No dizziness or li ghtheadedness and no feeling of heart racing or fluttering and no presyncope or syncope. No symptoms of slurred speech and no upper or lower extremity weakness. Further investigation was performed including EKG showing sinus mechanism with nonspecific ST and T wave abnormalities and also one set of cardiac enzymes came in to be unremarkable with a chest x-ray did not show any acute abnormality. Computed tomography scan of the brain showed chronic changes. The CTA of the neck showed severe stenosis about 70% involving the right internal carotid artery. The patient has no history of CAD and she does have hypertension and dyslipidemia. 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 The examination is remarkable for stable vital signs with regular rhythm and soft systolic murmur at the right upper sternal border was clear breathing sounds bilaterally and no carotid bruit and no lower extremity edema noted. Neurology service has been consulted to see the patient. Assessment Bilateral arm numbness. Neck discomfort Hypertension Dyslipidemia Carotid atherosclerosis Plan Neurology consult was placed and will follow-up on that Rule out acute coronary syndrome and severe CAD Obtain 2 sets of serial cardiac enzymes Obtain an echocardiogram was Doppler Follow-up with the neurology input Consider carotid revascularization if the neurology service believe that her symptoms are related to TIA Follow-up with the patient Past Medical History Past Medical History: Hypertension Additional Past Medical History / Comment(s): chronic back pain, bilateral arm fx., clavical fx History of Any Multi-Drug Resistant Organisms: None Reported Past Surgical History: Orthopedic Surgery Additional Past Surgical History / Comment(s): bilateral arm surgery Past Anesthesia/Blood Transfusion Reactions: No Reported Reaction Past Psychological History: No Psychological Hx Reported Smoking Status: Never smoker Past Alcohol Use History: Daily Past Drug Use History: None Reported Medications and Allergies Home Medications Medication Instructions Recorded Confirmed Type oxyCODONE-APAP 10-325MG [Percocet 1 tab PO QID 07/23/21 11/13/22 History 10-325 mg] Atorvastatin [Lipitor] 20 mg PO DAILY 30 Days #30 tab 07/25/21 11/13/22 Rx amLODIPine [Norvasc] 5 mg PO DAILY 30 Days #30 tab 07/25/21 11/13/22 Rx Metoprolol Tartrate [Lopressor] 75 mg PO BID 11/13/22 11/13/22 History Multivitamins, Thera [Multivitamin 1 tab PO DAILY 11/13/22 11/13/22 History (formulary)] Allergies Allergy/AdvReac Type Severity Reaction Status Date / Time Sulfa (Sulfonamide Allergy Anaphylaxis Verified 11/13/22 21:16 Antibiotics) Physical Exam Vitals: Vital Signs Temp Pulse Pulse Resp BP BP Pulse Ox 11/14/22 01:35 68 16 11/14/22 00:34 97.9 F 68 16 161/79 97 11/14/22 00:08 68 16 11/13/22 23:00 98.4 F 67 18 162/99 98 11/13/22 22:43 61 16 141/61 98 11/13/22 21:00 61 16 143/97 98 11/13/22 20:30 61 16 147/99 98 11/13/22 19:30 68 16 177/112 99 11/13/22 18:03 98.2 F 79 20 151/100 96 Intake and Output 11/13/22 11/14/22 11/14/22 22:59 06:59 14:59 Intake Total 210 Balance 210 Intake: IV 10 Invasive Line 1 10 Oral 200 Other: Voiding Method Toilet Weight 49.895 kg 49.895 kg Results 11/13/22 18:28 11/13/22 18:28 Cardiac Enzymes 11/13/22 11/13/22 Range/Units 18:28 18:28 AST 24 (14-36) U/L Troponin I <0.012 (0.000-0.034) ng/mL Coagulation 11/13/22 Range/Units 18:28 PT 10.0 (9.0-12.0) sec APTT 25.5 (22.0-30.0) sec CBC 11/13/22 Range/Units 18:28 WBC 6.8 (3.8-10.6) k/uL RBC 4.40 (3.80-5.40) m/uL Hgb 13.0 (11.4-16.0) gm/dL Hct 38.4 (34.0-46.0) % Plt Count 348 (150-450) k/uL Comprehensive Metabolic Panel 11/13/22 Range/Units 18:28 Sodium 136 L (137-145) mmol/L Potassium 3.6 (3.5-5.1) mmol/L Chloride 102 (98-107) mmol/L Carbon Dioxide 26 (22-30) mmol/L BUN 10 (7-17) mg/dL Creatinine 0.57 (0.52-1.04) mg/dL Glucose 102 H (74-99) mg/dL Calcium 9.3 (8.4-10.2) mg/dL AST 24 (14-36) U/L ALT 22 (4-34) U/L Alkaline Phosphatase 102 (38-126) U/L Total Protein 6.9 (6.3-8.2) g/dL Albumin 4.2 (3.5-5.0) g/dL Current Medications Generic Name Dose Route Start Last Admin Trade Name Freq PRN Reason Stop Dose Admin Acetaminophen 650 mg 11/13/22 20:48 Acetaminophen Tab 325 Mg Tab PO Q6HR PRN Mild Pain or Fever > 100.5 Amlodipine Besylate 5 mg 11/14/22 09:00 Amlodipine 5 Mg Tab PO DAILY [facility] Atorvastatin Calcium 20 mg 11/14/22 09:00 Atorvastatin 20 Mg Tab PO DAILY [facility] Hydromorphone HCl 0.5 mg 11/13/22 20:48 11/13/22 23:58 Hydromorphone 0.5 Mg/0.5 Ml Syringe IVP 0.5 mg Q3HR PRN Administration Moderate Pain (Scale 4 to 6) Hydromorphone HCl 1 mg 11/13/22 20:48 11/14/22 05:58 Hydromorphone 1 Mg/Ml 1 Ml Syringe IVP 1 mg Q3HR PRN Administration Severe Pain (Scale 7 to 10) Metoprolol Tartrate 75 mg 11/14/22 09:00 Metoprolol Tartrate 25 Mg Tab PO BID [facility] Multivitamins 1 each 11/14/22 09:00 Multivitamins, Thera 1 Each Tab PO DAILY [facility] Naloxone HCl 0.2 mg 03/24/23 20:48 Naloxone 0.4 Mg/Ml 1 Ml Vial IV Q2M PRN Opioid Reversal Oxycodone/Acetaminophen 1 each 11/14/22 09:00 Oxycodone-Apap 10-325mg 1 Each Tab PO QID [facility] Intake and Output 11/13/22 11/14/22 11/14/22 22:59 06:59 14:59 Intake Total 210 Balance 210 Intake: IV 10 Invasive Line 1 10 Oral 200 Other: Voiding Method Toilet Weight 49.895 kg 49.895 kg 11/13/22 18:28 11/13/22 18:28
[2022-11-14] MEDS: MULTIVITAMINS, THERA 1 EACH TAB PO SCH (08:26)
[2022-11-14] MEDS: ATORVASTATIN 20 MG TAB PO SCH (08:26)
[2022-11-14] MEDS: oxyCODONE-APAP 10-325MG 1 EACH TAB PO SCH ×4 (08:26→22:39)
[2022-11-14] MEDS: METOPROLOL TARTRATE 25 MG TAB PO SCH ×2 (08:26→20:03)
[2022-11-14] MEDS: amLODIPine 5 MG TAB PO SCH (08:26)
--- NOTE | 2022-11-14 09:38 | P.CNOR ---
History of Present Illness - [facility] Consult date: 11/14/22 Consult reason: neck pain (Neck pain and numbness and tingling in the extremities.) History of present illness: This is a 72-year-old female who is admitted through the emergency department with neck pain and numbness and tingling down both upper extremities for the past 2 weeks. She was evaluated in the emergency department and admitted for further workup for cardiac and neurology. We're consulted for orthopedic spine evaluation of her neck pain and radicular symptoms. The patient states that she has had the symptoms for the past 2 weeks. She does not recall any injury or trauma. She states that her neck has been painful and stiff. She states that the pain radiates from her neck up into the occipital region. She denies any dizziness or lightheadedness. She states that the numbness and tingling primarily affect her hands and fingers. She does have history of right wrist lacerations with subsequent reconstruction of the tendons approximately 40 years ago. She states that she is now dropping things with both hands and has severe weakness to the upper extremities. Past Medical History Past Medical History: Hypertension Additional Past Medical History / Comment(s): chronic back pain, bilateral arm fx., clavical fx History of Any Multi-Drug Resistant Organisms: None Reported Past Surgical History: Orthopedic Surgery Additional Past Surgical History / Comment(s): bilateral arm surgery Past Anesthesia/Blood Transfusion Reactions: No Reported Reaction Past Psychological History: No Psychological Hx Reported Smoking Status: Never smoker Past Alcohol Use History: Daily Past Drug Use History: None Reported Medications and Allergies Home Medications Medication Instructions Recorded Confirmed Type oxyCODONE-APAP 10-325MG [Percocet 1 tab PO QID 07/23/21 11/13/22 History 10-325 mg] Atorvastatin [Lipitor] 20 mg PO DAILY 30 Days #30 tab 07/25/21 11/13/22 Rx amLODIPine [Norvasc] 5 mg PO DAILY 30 Days #30 tab 07/25/21 11/13/22 Rx Metoprolol Tartrate [Lopressor] 75 mg PO BID 11/13/22 11/13/22 History Multivitamins, Thera [Multivitamin 1 tab PO DAILY 11/13/22 11/13/22 History (formulary)] Allergies Allergy/AdvReac Type Severity Reaction Status Date / Time Sulfa (Sulfonamide Allergy Anaphylaxis Verified 11/13/22 21:16 Antibiotics) Physical Examination Osteopathic Statement: *. No significant issues noted on an osteopathic structural exam other than those noted in the History and Physical/Consult. This is a pleasant 72-year-old female in no acute distress. She is alert and oriented 3. Exam of the head neck reveal no obvious deformity. There is palpable muscle tension in the paracervical musculature. She has slight limitation in cervical rotation and side bend. There is tenderness to palpation about the cervical paraspinal musculature. Minimal tenderness over the cervical spinous processes. Exam of the upper extremities reveals a deformity to the right wrist secondary to remote trauma and surgical reconstruction. There is no soft tissue swelling noted to the upper extremities. She has fairly good elbow, wrist and finger motion bilaterally. There is weakness with public health representative strength, particularly to the right upper extremity. There is some thenar atrophy noted bilaterally. There is weakness with finger abduction against resistance and thumb extension against resistance with the right being weaker than the left. Exam of the lower extremities is unremarkable. She has fairly good strength with dorsiflexion of the feet bilaterally. Neurovascular status to the lower extremities is intact. Results Cervical x-rays are pending. - Labs Labs: Abnormal Lab Results - Last 24 Hours (Table) 11/13/22 Range/Units 18:28 Sodium 136 L (137-145) mmol/L Glucose 102 H (74-99) mg/dL H & H 11/13/22 Range/Units 18:28 Hgb 13.0 (11.4-16.0) gm/dL Hct 38.4 (34.0-46.0) % Coagulation 11/13/22 Range/Units 18:28 INR 0.9 (<1.2) Result Diagrams: 11/13/22 18:28 11/13/22 18:28 Assessment and Plan (1) Cervical radiculopathy Current Visit: Yes Status: Acute Code(s): M54.12 - RADICULOPATHY, CERVICAL REGION SNOMED Code(s): 51187325 (2) Cervicalgia Current Visit: Yes Status: Acute Code(s): M54.2 - CERVICALGIA SNOMED Code(s): 96294639 (3) Bilateral arm weakness Current Visit: Yes Status: Acute Code(s): R29.898 - OTH SYMPTOMS AND SIGNS INVOLVING THE MUSCULOSKELETAL SYSTEM SNOMED Code(s): 81027832787563246 Plan: The clinical findings are discussed with the patient. I have reviewed the case with Dr. Phillips who agrees with obtain cervical x-rays today. I've started Solu- Medrol 60 mg IV 3 doses then we will switch her to a prednisone taper tomorrow. She may possibly require further workup with MRI which may possibly be done as an outpatient. I will have physical therapy evaluate her as well. We'll continue to follow and await x-rays. The patient is seen and examined at bedside. I agree with the history and physical has stated above. She has been having significant symptoms with past 2 weeks without any specific incident. She denies any prior problems with her neck or upper extremities other than a laceration right wrist which has given her chronic issues but this is a new issue for her currently. She states she has been having some troubles with her balance in the past 2 weeks and with her dexterity in her hands The patient does have significant weakness at her upper extremities particularly with triceps and biceps worse on the right than the left. She has a positive Spurling sign at her neck. She has positive Karl sign bilaterally at her hands. She has some 2+ deep tendon reflexes globally. She is no clonus in her feet. 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 She has severe cervical degenerative changes on her imaging with x-ray She has been having changes with her balance and this is likely due to some myelopathy as well I agree with starting the steroid but will likely continued IV steroids further before switching to oral taper. The steroid may start alleviate some of his symptoms in her upper extremities, however given the significant changes at her cervical spine x-rays and her acute symptoms with weakness I think that she needs a STAT MRI of her cervical spine. This will show us the degree of stenosis at her cervical spine and possible cord changes any. If she is having worsening she may need more aggressive treatment and the possibility of surgery and I explained that to her. We will certainly no more after the MRI and our treatment plan will depend on those results. I will order the MRI now. I'll plan to follow patient closely and discuss further options with her once the MRI is complete
--- NOTE | 2022-11-14 12:43 | XR ---
EXAMINATION TYPE: XR cervical spine comp DATE OF EXAM: 11/14/2022 COMPARISON: None HISTORY: Cervical radiculopathy TECHNIQUE: Five-view cervical spine FINDINGS: Prevertebral space is normal. There is loss of disc height at C3-4 through C6-7. Posterior spinal lamellar line is poorly visualized. Scoliosis is present. Facet degenerative changes are noted . Severe foraminal stenosis is noted on the right in the region of C3-4 C4-5 C5-6. Foraminal stenosis is present on the left in the region of C4-5. Odontoid is some limitation due to overlying occiput. MRI may provide additional information. IMPRESSION: 1. Severe foraminal stenosis, greater on the right, with scoliosis and degenerative disc changes.
--- NOTE | 2022-11-14 12:52 | CA ---
Transthoracic Echo Report Name: Elizabeth Lay Age: 72 Gender: F : 1950 Exam Date: 11/14/2022 09:37 Exam Location: [facility] Ht (in): 62 Wt (lb): 110 Ordering Physician: Jacques Wilson MD ([id number]) Attending/Referring Phys: Deckhand Maintenance Gita Jerez RDCS Procedure CPT: Indications: heart function Cardiac Hx: Technical Quality: Good Contrast 1: Total Dose (mL): Contrast 2: Total Dose (mL): MEASUREMENTS (Male / Female) Normal Values 2D ECHO LV Diastolic Diameter PLAX 4.5 cm 4.2 - 5.9 / 3.9 - 5.3 cm LV Systolic Diameter PLAX 2.7 cm IVS Diastolic Thickness 1.1 cm 0.6 - 1.0 / 0.6 - 0.9 cm LVPW Diastolic Thickness 1.1 cm 0.6 - 1.0 / 0.6 - 0.9 cm LV Relative Wall Thickness 0.5 RV Internal Dim ED PLAX 2.5 cm LA Systolic Diameter LX 2.7 cm 3.0 - 4.0 / 2.7 - 3.8 cm LV Diastolic Volume MOD BP 55.0 cm??? 67 - 155 / 56 - 104 cm??? LV Systolic Volume MOD BP 28.4 cm??? 22 - 58 / 19 - 49 cm??? LV Ejection Fraction MOD BP 48.3 % >= 55 % LV Diastolic Volume MOD 4C 52.1 cm??? LV Systolic Volume MOD 4C 22.0 cm??? LV Ejection Fraction MOD 4C 57.8 % LV Diastolic Length 4C 5.1 cm LV Systolic Length 4C 4.4 cm LV Diastolic Volume MOD 2C 56.0 cm??? LV Systolic Volume MOD 2C 31.5 cm??? LV Ejection Fraction MOD 2C 43.7 % LV Diastolic Length 2C 4.9 cm LV Systolic Length 2C 5.5 cm LA Volume 43.0 cm??? 18 - 58 / 22 - 52 cm??? M-MODE Aortic Root Diameter MM 3.1 cm MV E Point Septal Separation 0.3 cm AV Cusp Separation MM 2.2 cm DOPPLER AV Peak Velocity 133.3 cm/s AV Peak Gradient 7.1 mmHg AI Peak Velocity 231.4 cm/s AI Peak Gradient 21.4 mmHg AI Pressure Half Time 558.7 ms MV Area PHT 4.4 cm??? Mitral E Point Velocity 81.0 cm/s Mitral A Point Velocity 64.2 cm/s Mitral E to A Ratio 1.3 MV Deceleration Time 172.1 ms MV E' Velocity 6.3 cm/s Mitral E to MV E' Ratio 12.9 TR Peak Velocity 259.3 cm/s TR Peak Gradient 26.9 mmHg Right Ventricular Systolic Press 31.3 mmHg FINDINGS Left Ventricle Left ventricular ejection fraction is estimated at 50-55 %. Left ventricular cavity size normal. Borderline left ventricular hypertrophy. Basel inferior wall hypokinesis Right Ventricle Normal right ventricular size and function. Right ventricular systolic pressure within normal limits. Right Atrium Normal right atrial size. Left Atrium Normal left atrial size. Mitral Valve Structurally normal mitral valve. Mild to moderate mitral regurgitation. Aortic Valve Trileaflet aortic valve. No aortic stenosis. Mild aortic regurgitation. Tricuspid Valve Structurally normal tricuspid valve. Mild to moderate tricuspid regurgitation. Pulmonic Valve Structurally normal pulmonic valve. No pulmonic regurgitation. Pericardium Normal pericardium. No pericardial effusion. Aorta Normal size aortic root and proximal ascending aorta. CONCLUSIONS Normal LV systolic function Normal RV systolic function [id number]-dnepnmaa mitral regurgitation Mild to moderate tricuspid regurgitation Previewed by: Dr. Jacques Wilson MD (Electronically Signed) Final Date: 14 November 2022 12:51
[2022-11-14] MEDS ORDERED: methocarbamoL 500 MG TAB PO PRN (13:07)
[2022-11-14] MEDS: methylPREDNISolone SOD SUCCI 125 MG/2 ML VIAL IV SCH ×2 (13:09→16:43)
[2022-11-14] MEDS ORDERED: LORazepam 2 MG/ML INJ IV STA (14:00)
--- NOTE | 2022-11-14 15:07 | MR ---
EXAMINATION TYPE: MR cervical spine wo con DATE OF EXAM: 11/14/2022 COMPARISON: None HISTORY: New upper extremity weakness with myelopathy. Multiplanar multiecho imaging of the cervical spine performed without contrast. There is moderate narrowing of the disc spaces at C4-5 C5-6 and C6-7. There is a lower cervical mild kyphotic deformity. There is anterior wedging of C5 vertebra 35%. There is severe narrowing of the sp inal canal the C4-5 level with posterior endplate spur formation encroaching on the spinal canal. Can al is narrowed to 5 mm. There is mild increased signal in the cervical cord at the C4-5 level. The br ainstem is intact. The STIR images show increased signal in the C4 and C5 vertebral bodies consistent with edema. No pathologic fluid collection. No paraspinal mass. There is multilevel cervical hypertr ophic facet arthropathy. IMPRESSION: There is mild compression fracture of C5 with anterior wedging and kyphotic deformity. There is moder ately severe spinal stenosis at C4-5 with 5 mm spinal canal and edema and myelomalacia of the cervica l cord. Mild edema seen within the C4 and C5 vertebral bodies. Edema consistent with acute or subacute fractu res.
--- NOTE | 2022-11-14 16:43 | P.HPIM ---
History of Present Illness H&P Date: 11/14/22 This is a 72 year old female with medical history of hypertension, chronic back pain with prior history of multiple vertebral fractures per patient. Denies alcohol, tobacco, or illicit substance use. Patient reports to the with progressive cervical neck pain with limited mobility and numbness tingling down the arms into the hands bilaterally, ongoing for the past 2 weeks. Patient follows with Dr. Mccarty outpatient for chronic back pain with prior history of pain injection many years ago. Patient denies any recent fall, trauma, heavy lifting, or activity that precipitated the neck pain. Denies any loss of bladder, bowel. No acute lower back pain. Patient does admit having high blood pressures recently which she feels is likely from her pain. Currently reported as 8/10 in the neck and radiating bilaterally out to her shoulder blades. Initial work up shows essentially unremarkable blood work. Sodium of 136, glucose 102. Troponin level is negative. Patient is admitted with consults placed to cardiology, neurology and orthopedic services. Stroke work up in place which includes brain CT showing extensive white matter hypodensity could relate to microvascular ischemia or demyelinating disease with some progression compared to old exam. Chest xray showing no active cardiopulmonary disease. Hiatal hernia, no adverse change. Patient had CT angiography head neck showing 70% stenosis of the proximal right internal carotid artery. Echocardiogram showing normal LV systolic function with EF of 55%, mild to moderate mitral regurgitation and mild to moderate tricuspid regurgitation. After orthopedic consultation patient has been started on IV steroids and also pain management. Antispasmodics will be added as well. Patient had cervical spine xray showing severe foraminal stenosis greater on the right, with scoliosis and degenerative disc changes. Patient continues with bilateral hand numbness and there is obvious deformity palpated along the cervical spine. Cervical MRI is ordered and further recommendations pending from orthopedics. REVIEW OF SYSTEMS: CONSTITUTIONAL: No fever, no malaise, no fatigue. HEENT: No recent visual problems or hearing problems. Denied any sore throat. CARDIOVASCULAR: No chest pain, orthopnea, PND, no palpitations, no syncope. PULMONARY: No shortness of breath, no cough, no hemoptysis. GASTROINTESTINAL: No diarrhea, no nausea, no vomiting, no abdominal pain. NEUROLOGICAL: No headaches, no weakness. Reports bilateral hand numbness. HEMATOLOGICAL: Denies any bleeding or petechiae. GENITOURINARY: Denies any burning micturition, frequency, or urgency. MUSCULOSKELETAL/RHEUMATOLOGICAL: Cervical neck pain. ENDOCRINE: Denies any polyuria or polydipsia. The rest of the 14-point review of systems is negative. PHYSICAL EXAMINATION: GENERAL: The patient is alert and oriented x3, not in any acute distress. Well developed, well nourished. HEENT: Pupils are round and equally reacting to light. EOMI. No scleral icterus. No conjunctival pallor. Normocephalic, atraumatic. No pharyngeal erythema. No thyromegaly. CARDIOVASCULAR: S1 and S2 present. No murmurs, rubs, or gallops. PULMONARY: Chest is clear to auscultation, no wheezing or crackles. ABDOMEN: Soft, nontender, nondistended, normoactive bowel sounds. No palpable organomegaly. MUSCULOSKELETAL: Pain and tenderness to palpation along cervical spine with bony deformity noted on curvature to the left on palpation. EXTREMITIES: No cyanosis, clubbing, or pedal edema. NEUROLOGICAL: Gross neurological examination did not reveal any focal deficits. Equal grasp. SKIN: No rashes. Assessment and Plan Assessment Upper extremity weakness Cervical neck pain with radiculopathy/bilateral hand numbness acute stroke/TIA felt unlikely secondary to acute cervical spine changes found on imaging. Cervical spine stenosis found on imaging Carotid artery stenosis with right ICA 70% stenosis Hypertension History of bilateral wrist surgery Remore history of ETOH use none currently GI prophylaxis DVT prophylaxis Full Code Plan Cervical MRI ordered Continue IV solumedrol, pain management and robaxin has been ordered Resume appropriate home Patient is NPO after midnight for possible surgery tomorrow with Dr. Phillips Labs, echocardiogram reviewed Neurology consultation in place The impression and plan of care has been dictated by Nurse Lyndsey Renner as directed. Dr. Ani MD I have performed a history and physical examination and medical decision making of this patient, discussed the same with the dictator, and agree with the dict ators assessment and plan as written, documented as a scribe. Based on total visit time, I have performed more than 50% of this visit. Past Medical History Past Medical History: Hypertension Additional Past Medical History / Comment(s): chronic back pain, bilateral arm fx., clavical fx History of Any Multi-Drug Resistant Organisms: None Reported Past Surgical History: Orthopedic Surgery Additional Past Surgical History / Comment(s): bilateral arm surgery Past Anesthesia/Blood Transfusion Reactions: No Reported Reaction Past Psychological History: No Psychological Hx Reported Smoking Status: Never smoker Past Alcohol Use History: Daily Past Drug Use History: None Reported Medications and Allergies Home Medications Medication Instructions Recorded Confirmed Type RX: oxyCODONE-APAP 10-325MG 1 tab PO QID 07/23/21 11/13/22 History [Percocet 10-325 mg] RX: Atorvastatin [Lipitor] 20 mg PO DAILY 30 Days #30 tab 07/25/21 11/13/22 Rx RX: amLODIPine [Norvasc] 5 mg PO DAILY 30 Days #30 tab 07/25/21 11/13/22 Rx Multivitamins, Thera [Multivitamin 1 tab PO DAILY 11/13/22 11/13/22 History (formulary)] RX: Metoprolol Tartrate [Lopressor] 75 mg PO BID 11/13/22 11/13/22 History Allergies Allergy/AdvReac Type Severity Reaction Status Date / Time Sulfa (Sulfonamide Allergy Anaphylaxis Verified 11/13/22 21:16 Antibiotics) Physical Exam Vitals: Vital Signs Temp Pulse Pulse Pulse Resp BP BP 11/14/22 08:26 98.2 F 58 L 16 169/84 11/14/22 08:02 11/14/22 01:35 68 16 11/14/22 00:34 97.9 F 68 16 161/79 11/14/22 00:08 68 16 11/13/22 23:00 98.4 F 67 18 162/99 11/13/22 22:43 61 16 141/61 11/13/22 21:00 61 16 143/97 11/13/22 20:30 61 16 147/99 11/13/22 19:30 68 16 177/112 11/13/22 18:03 98.2 F 79 20 151/100 Pulse Ox 11/14/22 08:26 98 11/14/22 08:02 95 11/14/22 01:35 11/14/22 00:34 97 11/14/22 00:08 11/13/22 23:00 98 11/13/22 22:43 98 11/13/22 21:00 98 11/13/22 20:30 98 11/13/22 19:30 99 11/13/22 18:03 96 Intake and Output 11/13/22 11/14/22 11/14/22 22:59 06:59 14:59 Intake Total 210 118 Balance 210 118 Intake: IV 10 Invasive Line 1 10 Oral 200 118 Other: Voiding Method Toilet Weight 49.895 kg 49.895 kg Results CBC & Chem 7: 11/13/22 18:28 11/13/22 18:28 Labs: Abnormal Lab Results - Last 24 Hours (Table) 11/13/22 Range/Units 18:28 Sodium 136 L (137-145) mmol/L Glucose 102 H (74-99) mg/dL Thrombosis Risk Factor Assmnt - Choose All That Apply Any of the Below Risk Factors Present?: No Other Risk Factors: Yes Each Risk Factor Represents 2 Points: Age 61-74 years Each Risk Factor Represents 5 Points: Stroke (< 1 month) Thrombosis Risk Factor Assessment Total Risk Factor Score: 7 Thrombosis Risk Factor Assessment Level: High Risk Assessment and Plan Time with Patient: Greater than 30
[2022-11-14] MEDS: KETOROLAC 15 MG/ML 1 ML VIAL IVP PRN (16:44)
[2022-11-14] MEDS: HEPARIN SODIUM,PORCINE/PF 5,000 UNIT/0.5 ML SYRINGE SQ SCH (20:03)
[2022-11-15] MEDS: methylPREDNISolone SOD SUCCI 125 MG/2 ML VIAL IV SCH ×4 (00:10→23:02)
[2022-11-15] MEDS: HYDROmorphone 1 MG/ML 1 ML SYRINGE IVP PRN ×3 (04:44→23:58)
[2022-11-15] MEDS: PANTOPRAZOLE 40 MG TABLET PO SCH (04:45)
[2022-11-15] MEDS ORDERED: fentaNYL (PF) 50 MCG/ML 2 ML AMP ONE (07:59)
[2022-11-15] MEDS ORDERED: MIDAZOLAM 2 MG/2 ML VIAL ONE (07:59)
[2022-11-15] MEDS ORDERED: GLYCOPYRROLATE 0.2 MG/ML 2 ML VIAL ONE (07:59)
[2022-11-15] MEDS ORDERED: PHENYLEPHRINE-0.9% NACL SYG 1,000 MCG/10 ML SYRINGE ONE (07:59)
[2022-11-15] MEDS ORDERED: ROCURONIUM 10 MG/ML (5 ML VIAL) IV ONE (07:59)
[2022-11-15] MEDS ORDERED: SUCCINYLCHOLINE CHLORIDE 200 MG/10 ML VIAL IV ONE (07:59)
[2022-11-15] MEDS ORDERED: NEOSTIGMINE 1 MG/ML 10 ML VIAL ONE (07:59)
[2022-11-15] MEDS ORDERED: LIDOCAINE 2% INJ 20 MG/ML (2 ML VIAL) ONE (07:59)
[2022-11-15] MEDS ORDERED: PROPOFOL 10 MG/ML 20 ML VIAL IV ONE (07:59)
[2022-11-15] MEDS ORDERED: SODIUM CHLORIDE 0.9% 100 ML with ceFAZolin 2,000 MG IV ONE ×2 (08:06)
[2022-11-15] MEDS ORDERED: LACTATED RINGERS 1,000 ML IV ONE (08:06)
[2022-11-15] MEDS ORDERED: THROMBIN (BOVINE) 5,000 UNIT VIAL TOPICAL ONE (08:40)
[2022-11-15] MEDS ORDERED: GELATIN SPONGE,ABSORB (LARGE) 1 EACH SPONGE TOPICAL ONE (08:40)
[2022-11-15] MEDS ORDERED: BUPIVACAIN-EPI 0.25%-1:200,000 30 ML VIAL SQ ONE (08:40)
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
[2022-11-15] MEDS ORDERED: HYDROmorphone 0.5 MG/0.5 ML SYRINGE IVP PRN (11:15)
[2022-11-15] MEDS ORDERED: HYDROcodone/APAP 5-325MG 1 EACH TAB PO PRN (11:15)
[2022-11-15] MEDS ORDERED: ONDANSETRON 4 MG/2 ML VIAL IVP PRN (11:15)
[2022-11-15] MEDS ORDERED: HYDROmorphone 1 MG/ML 1 ML SYRINGE IVP PRN (11:15)
[2022-11-15] MEDS ORDERED: bisacodyL 10 MG SUPP RECTAL PRN (11:15)
[2022-11-15] MEDS ORDERED: HYDROmorphone 0.5 MG/0.5 ML SYRINGE IVP ONE ×2 (11:22→11:30)
--- NOTE | 2022-11-15 11:23 | XR ---
EXAMINATION TYPE: XR cervical spine 1V DATE OF EXAM: 11/15/2022 COMPARISON: 11/15/2022 HISTORY: Needle placement TECHNIQUE: Lateral cross table cervical spine FINDINGS: There is a needle directed toward what appears to be the lower aspect of the C4 level. Endo tracheal tube is evident. IMPRESSION: 1. Metallic device directed towards the C4 vertebral level
--- NOTE | 2022-11-15 11:25 | XR ---
EXAMINATION TYPE: XR cervical spine 1V DATE OF EXAM: 11/15/2022 COMPARISON: Earlier exam HISTORY: Needle placement TECHNIQUE: Crosstable lateral cervical spine is obtained. FINDINGS: Needle is directed towards the C4-5 disc level. Endotracheal tube is present. IMPRESSION: 1. Metallic device directed to what appears to be the C4-5 disc level
--- NOTE | 2022-11-15 11:26 | XR ---
EXAMINATION TYPE: XR cervical spine 1V DATE OF EXAM: 11/15/2022 COMPARISON: None HISTORY: Needle placement TECHNIQUE: Lateral cervical spine cross table view FINDINGS: There is a needle directed to it appears to be the C6-7 disc level. IMPRESSION: 1. A metallic device directed to appears to be the C6-7 disc level.
--- NOTE | 2022-11-15 11:28 | XR ---
Fluoroscopy INDICATION: Pain FINDINGS: Fluoroscopy time: 3 seconds. DAP: 0.1122 mGycm^2 Images obtained: 6. IMPRESSIONS: 1. Documentation of fluoroscopy.
--- NOTE | 2022-11-15 11:29 | P.OP ---
Date of Procedure: 11/15/22 Preoperative Diagnosis: Spinal cord injury, severe cervical stenosis C4 5 C5 6 C6 7, vertebral compression fracture C5, cervical myelomalacia, upper extremity weakness, cervical myelopathy, radiculopathy, degenerative disease, cervical kyphosis Postoperative Diagnosis: Spinal cord injury, severe cervical stenosis C4 5 C5 6 C6 7, vertebral compression fracture C5, cervical myelomalacia, upper extremity weakness, cervical myelopathy, radiculopathy, degenerative disease, cervical kyphosis Anesthesia: GETA Pathology: other (C5 vertebral body sent to pathology) Condition: stable Disposition: PACU Description of Procedure: BRIEF OPERATIVE NOTE Preoperative Diagnosis:Spinal cord injury, severe cervical stenosis C4 5 C5 6 C6 7, vertebral compression fracture C5, cervical myelomalacia, upper extremity weakness, cervical myelopathy, radiculopathy, degenerative disease, cervical kyphosis Postoperative Diagnosis:Spinal cord injury, severe cervical stenosis C4 5 C5 6 C6 7, vertebral compression fracture C5, cervical myelomalacia, upper extremity weakness, cervical myelopathy, radiculopathy, degenerative disease, cervical kyphosis Procedure: Anterior cervical decompression with discectomy and fusion C4 5 C5 6 C6 7 Full corpectomy of C5 for decompression Biopsy of C5 Placement of interbody graft C4 to 6 and C6 7 Application of anterior cervical plate C4 5 6 and 7 Surgeon: Dr. Phillips Solution Director: Jyothi Sapp is present throughout the entire the case persistence during positioning, dissection, exposure, visualization, and all crucial elements of the case as well as closure. Anesthesia: General anesthesia per Dr. Jarrett Estimated blood loss: Approximately 200 mL Complications: None apparent Components implanted: K2M [place] anterior cervical plate system with peek interbody cage measuring 23 mm with because interbody graft bone graft and 5 mL of Lashawn bone putty for bone grafting Disposition: To recovery room in good stable condition. OPERATIVE INDICATIONS The patient has had severe worsening issues in their neck and upper extremities. Over the past several months the patient has been having weakness in her upper extremities with difficulties with her fine motor skill and dexterity. She is also having beginnings of difficulty with her ambulation and balance. She is having worsening over the past few months. She denied any prior injury. She denied any prior problems with her neck. She denied any prior problems with her upper extremities before July 2022. She says that she has been having significant numbness or hands and fingers and been dropping objects regularly. She is not having any specific treatment for this but was having worsening and decided to present to the hospital where she had a primary complaint of weakness at her upper extremities. She started workup for possibly of cardiovascular or cerebrovascular issues which have been negative. With her weakness we're consult is and we felt that she was having significant issues due to her cervical spine and ordered further imaging and testing where she was found to have severe cervical stenosis with ce rvical myelopathy with change within her spinal cord which was consistent with her myelopathic symptoms and weakness. We started the patient on aggressive treatment with medication and steroid and did further imaging. The patient was not having that if it with medication and discussed surgical intervention with her. I discussed with her the fact that she had severe spinal cord injury with significant change within her spinal cord rep sending edema and myelopathy with myelomalacia. I explained to her that she may have permanent damage at her spinal cord. A splinter that she may have permanent weakness and changes with her neurologic function due to her issues at her spinal cord. We explained that the imaging showed evidence of fracture at the vertebrae without history of trauma. I discussed the risks, occasions alternatives benefits of various treatments with her. I felt that she would be best served with urgent decompression and stabilization at her anterior cervical spine with surgery. We discussed various treatment options including surgery, and the patient wishes to proceed with surgery We discussed the risk, patient's alternatives and benefits of surgery including but not limited to, risk of bleeding risk of infection, risk of need for further surgery, risk of decreased, loss of motion, muscle function, malunion nonunion, hardware failure, nerve damage, paralysis, heart attack, and . OPERATIVE SUMMARY After discussing all the risks, patient alternatives and benefits at length, the patient elected to proceed with surgical intervention, signed informed consent, and presented for their procedure. The patient was seen and examined in the preoperative holding area and the surgical site was marked. The patient was given antibiotics and brought to the operating room. The patient was positioned on the operating room table in a supine position being careful to pad any bony prominences and pressure points. The patient was sedated and intubated by anesthesia in standard fashion. Once the airway and C- spine were stabilized the patient's arms were padded and tucked at her side, with her shoulders gently taped. The head was placed in a donut pad with the neck in good neutral alignment and position. We were careful to maintain the patient's cervical spine and good neutral alignment and position throughout. The patient was prepped and draped in a normal standard fashion. An appropriate timeout and keystone protocol performed. We were able to proceed with the surgery. The local wound area was infiltrated with local anesthetic. An incision was made transversely approximately 2-1/2 cm over the appropriate levels at C5. Dissection was taken down subcutaneously to the level of the platysma which was split in line with its fibers. Dissection was taken with a carotid approach, with the trachea and esophagus medial and the carotid sheath laterally. We dissected down to the anterior surface of the vertebral bodies from C4 to C7. Intraoperative x-ray was taken which showed a marker at the appropriate level. It was very difficult with her compression and that seen in change at her cervical spine to get good pictures of the vertebrae but we were able to possibly confirm levels at C4 5 C5 6 and C6 7 appropriately. With the appropriate level positively confirmed, we were able to proceed with discectomy at the appropriate levels. All of the operative levels were exposed appropriately from C4 to C7. There is obvious deformity with anterior listhesis at C4 5 and anterior height loss at C5. The patient had all their twitches back, and there was no evidence of recurrent laryngeal issue. The wound was copiously irrigated and suctioned dry as had been done periodically throughout the case. At the appropriate level/levels, starting at C4 5 and then moving C5 6 and then 67 I established an annulotomy with an 11 blade scalpel. A discectomy was performed with a combination of pituitary rongeurs, curettes, a high-speed bur, and Kerrison rongeurs. The posterior longitudinal ligament was taken down as were any posterior osteophytes. This gave good central and bilateral foraminal decompression at the level of the disc. At C5 5 I performed a complete vertebral corpectomy which gave further decompression as there was severe evidence of stenosis behind the superior aspect of the vertebral body of C5. This gave excellent decompression from C4 to C6. There is no evidence of any dural tear or leak. The endplates were prepared with a high-speed bur. With the endplates in good parallel position, I was able to size for the appropriate size interbody graft. I used a caliper to obtain appropriate sizing. We had good endplate preparation and with anesthesia doing gentle in- line traction at the patient's cervical spine and was able place the peek graft which was filled with Lashawn bone graft from C4 to C6 and good alignment good position flush with the anterior surface of the vertebral bodies. The wound was irrigated and suctioned dry the graft was prepared and malleted into position. It had good alignment and position with the anterior surface flush with the anterior surface of the vertebral bodies at C4 and C6. This was done similarly at the disc space of C67 to get good decompression at that level as well with then placement of the interbody allograft bone graft flush with the vertebral bodies of C6 and 7. With the grafts intact, I was able to measure and contour and appropriate sized plate. The plate was positioned at the midline over the appropriate levels from C4 to C7. Screw holes were established with a hand drill and drill guide. Screws were placed in good alignment and position with excellent bony purchase. They were seated under the locking device. The construct was checked and found to be stable. Intraoperative x-ray was taken which showed good alignment and position of the implants at the appropriate levels. There was no evidence of any dural tear or leak. Good hemostasis was maintained. The wound was copiously irrigated and suctioned dry as had been done periodically throughout the case. The platysma was closed with absorbable suture. The subcutaneous tissue was closed. The subcuticular tissue was closed with absorbable suture. The wound was cleaned and dried and dressed appropriately. A hard cervical collar was placed appropriately. The patient was woken up by anesthesia, extubated, transferred back gently to their hospital bed and brought to the recovery room in good stable condition. The patient will be admitted to the hospital for appropriate postoperative care, medical management and monitoring. We will continue to follow them closely about the postoperative course.
[2022-11-15] MEDS: MULTIVITAMINS, THERA 1 EACH TAB PO SCH (12:32)
[2022-11-15] MEDS: CYCLOBENZAPRINE 10 MG TAB PO PRN (12:33)
[2022-11-15] MEDS: oxyCODONE-APAP 10-325MG 1 EACH TAB PO SCH ×4 (12:33→20:16)
[2022-11-15] MEDS: ATORVASTATIN 20 MG TAB PO SCH (12:34)
[2022-11-15] MEDS: METOPROLOL TARTRATE 25 MG TAB PO SCH ×2 (12:34→20:17)
[2022-11-15] MEDS: KETOROLAC 15 MG/ML 1 ML VIAL IVP PRN (12:34)
[2022-11-15] MEDS: amLODIPine 5 MG TAB PO SCH (12:34)
[2022-11-15] MEDS: HEPARIN SODIUM,PORCINE/PF 5,000 UNIT/0.5 ML SYRINGE SQ SCH ×2 (12:35→20:16)
--- NOTE | 2022-11-15 13:01 | P.PN ---
Subjective Progress Note Date: 11/15/22 This is a 72 year old female with medical history of hypertension, chronic back pain with prior history of multiple vertebral fractures per patient. Denies alcohol, tobacco, or illicit substance use. Patient reports to the with progressive cervical neck pain with limited mobility and numbness tingling down the arms into the hands bilaterally, ongoing for the past 2 weeks. Patient follows with Dr. Mccarty outpatient for chronic back pain with prior history of pain injection many years ago. Patient denies any recent fall, trauma, heavy lifting, or activity that precipitated the neck pain. Denies any loss of bladder, bowel. No acute lower back pain. Patient does admit having high blood pressures recently which she feels is likely from her pain. Currently reported as 8/10 in the neck and radiating bilaterally out to her shoulder blades. Initial work up shows essentially unremarkable blood work. Sodium of 136, glucose 102. Troponin level is negative. Patient is admitted with consults placed to cardiology, neurology and orthopedic services. Stroke work up in place which includes brain CT showing extensive white matter hypodensity could relate to microvascular ischemia or demyelinating disease with some progression compared to old exam. Chest xray showing no active cardiopulmonary disease. Hi atal hernia, no adverse change. Patient had CT angiography head neck showing 70% stenosis of the proximal right internal carotid artery. Echocardiogram showing normal LV systolic function with EF of 55%, mild to moderate mitral regurgitation and mild to moderate tricuspid regurgitation. After orthopedic consultation patient has been started on IV steroids and also pain management. Antispasmodics will be added as well. Patient had cervical spine xray showing severe foraminal stenosis greater on the right, with scoliosis and degenerative disc changes. Patient continues with bilateral hand numbness and there is obvious deformity palpated along the cervical spine. Cervical MRI is ordered and further recommendations pending from orthopedics. 11/15/2022 Patient underwent cervical MRI which reveals mild compression fracture of C5 with anterior wedging and kyphotic deformity. There is moderately sever spinal canal stenosis at C4-5 with 5 mm spinal canal and edema and myelomalacia of the cervical cord. Mild edema within the C4 and C5 vertebral bodies. Edema consistent with acute or subacute fractures. This was discussed with Dr. Phillips. Patient was placed in hard cervical collar to wear 24/7. Patient was taken for anterior cervical decompression with discectomy and fusion C4 5 C5 6 and C6 7, full corpectomy of C5 for decompression, biopsy of C5, placement of interbody graft and also application of anterior cervical plate with Dr. Phillips early this morning. Postoperative vitals stable. Review of Systems Constitutional: Denied any fatigue denied any fever. Cardio vascular: denied any chest pain, palpitations Gastrointestinal: denied any nausea, vomiting, diarrhea Pulmonary: Denied any shortness of breath cough Neurologic Continues with same upper extremity weakness and hand numbness All inpatient medications were reviewed and appropriate changes in these medications as dictated in the interval history and assessment and plan. PHYSICAL EXAMINATION: GENERAL: The patient is alert and oriented x3, not in any acute distress. Well developed, well nourished. HEENT: Pupils are round and equally reacting to light. EOMI. No scleral icterus. No conjunctival pallor. Normocephalic, atraumatic. No pharyngeal erythema. No thyromegaly. CARDIOVASCULAR: S1 and S2 present. No murmurs, rubs, or gallops. PULMONARY: Chest is clear to auscultation, no wheezing or crackles. ABDOMEN: Soft, nontender, nondistended, normoactive bowel sounds. No palpable organomegaly. MUSCULOSKELETAL: Pain and tenderness to palpation along cervical spine with bony deformity noted on curvature to the left on palpation. EXTREMITIES: No cyanosis, clubbing, or pedal edema. NEUROLOGICAL: Gross neurological examination did not reveal any focal deficits. Equal grasp. SKIN: No rashes. Assessment and Plan Assessment Upper extremity weakness Cervical neck pain with radiculopathy/bilateral hand numbness acute stroke/TIA felt unlikely secondary to acute cervical spine changes found on imaging. Cervical spine stenosis postoperative day 0 surgical repair as above Carotid artery stenosis with right ICA 70% stenosis Hypertension History of bilateral wrist surgery Remore history of ETOH use none currently GI prophylaxis DVT prophylaxis Full Code Plan Continue IV solumedrol, pain management and robaxin Resume appropriate home Labs, echocardiogram reviewed Neurology consultation in place PT/OT have been consulted AM labs The impression and plan of care has been dictated by Magdalene Gudino, Nurse Practitioner as directed. Dr. Ani MD I have performed a history and physical examination and medical decision making of this patient, discussed the same with the dictator, and agree with the dictators assessment and plan as written, documented as a scribe. Based on total visit time, I have performed more than 50% of this visit. Objective - Vital Signs Vital signs: Vital Signs Temp 98.1 F 11/15/22 07:51 Pulse 70 11/15/22 07:51 Resp 18 11/15/22 07:51 BP 165/99 11/15/22 07:51 Pulse Ox 96 11/15/22 07:51 FiO2 Intake & Output 11/14/22 11/15/22 11/15/22 18:59 06:59 18:59 Intake Total 358 240 Balance 358 240 Intake: Oral 358 240 Other: Voiding Method Toilet Toilet Toilet # Voids 2 2 - Labs CBC & Chem 7: 11/13/22 18:28 11/13/22 18:28 Assessment and Plan Time with Patient: Less than 30
--- NOTE | 2022-11-16 01:49 | P.PN ---
Subjective Progress Note Date: 11/15/22 Patient was seen for a follow-up. Patient had undergone cervical decompressive surgery today. Patient has not noticed any significant improvement in her hands. However this too early to assess. Objective - Vital Signs Vital signs: Vital Signs Temp 97.4 F L 11/15/22 11:11 Pulse 55 L 11/15/22 11:42 Resp 16 11/15/22 11:42 BP 130/74 11/15/22 11:42 Pulse Ox 98 11/15/22 11:42 FiO2 Intake & Output 11/14/22 11/15/22 11/15/22 18:59 06:59 18:59 Intake Total 358 240 318 Output Total 320 Balance 358 240 -2 Intake: IV 200 Oral 358 240 118 Output: Urine 120 Estimated Blood Loss 200 Other: Voiding Method Toilet Toilet Toilet # Voids 2 2 - Exam Patient is alert and awake, fully oriented. Mentation is normal. Detailed testing deferred today. - Labs CBC & Chem 7: 11/13/22 18:28 11/13/22 18:28 Assessment and Plan Assessment: * Cervical spinal stenosis C4 5 level, severe degree, with myelopathy, cord edema with abnormal cord signal in the cervical spinal cord on MRI. Patient has clinical features of cervical myelopathy as well. Denies any bowel or bladder control issues or symptoms in the lower extremities except for some ba charles issues. * Status post anterior cervical decompression with discectomy and fusion C4-5, C5-6, C6-7, today postoperative day 0. * Hypertension * Right ICA stenosis 70% per CTA, currently asymptomatic at this time. Plan: * Patient had undergone cervical decompression with anterior cervical decompression with discectomy and fusion C4-5, C5-6 and C6-7. * continue use of hard cervical collar for cervical stability for now. * Patient has right ICA stenosis 70%. This is clinically asymptomatic. Suggest starting aspirin when cleared by orthopedic surgery. * Patient may follow up with Dr. Wilson for surveillance as outpatient. * DVT prophylaxis: Patient on heparin 5000 units subcu every 12 [address]. * Dr. Onur Zee Will resume neurology service in the morning.
[2022-11-16] MEDS: HYDROmorphone 1 MG/ML 1 ML SYRINGE IVP PRN ×4 (04:55→20:45)
[2022-11-16] MEDS: PANTOPRAZOLE 40 MG TABLET PO SCH (04:56)
[2022-11-16 05:46] VITALS: RESP 16
--- NOTE | 2022-11-16 07:17 | FL ---
Fluoroscopy History: Anterior cervical fusion .03 sec FL .1122 DAP
[2022-11-16] MEDS: oxyCODONE-APAP 10-325MG 1 EACH TAB PO SCH ×4 (08:19→21:48)
[2022-11-16] MEDS: amLODIPine 5 MG TAB PO SCH (08:19)
[2022-11-16] MEDS: MULTIVITAMINS, THERA 1 EACH TAB PO SCH (08:19)
[2022-11-16] MEDS: METOPROLOL TARTRATE 25 MG TAB PO SCH ×2 (08:19→20:44)
[2022-11-16] MEDS: SENNOSIDES-DOCUSATE SODIUM 1 EACH TAB PO SCH (08:19)
[2022-11-16] MEDS: ATORVASTATIN 20 MG TAB PO SCH (08:19)
[2022-11-16] MEDS: HEPARIN SODIUM,PORCINE/PF 5,000 UNIT/0.5 ML SYRINGE SQ SCH ×2 (08:20→20:44)
[2022-11-16] MEDS: methylPREDNISolone SOD SUCCI 125 MG/2 ML VIAL IV SCH ×2 (08:20→16:43)
--- NOTE | 2022-11-16 08:47 | P.PN ---
Progress Note - Text Progress Note Date: 11/16/22 Orthopedic Spine Patient is a pleasant 72-year-old female who is seen at the bedside following anterior cervical decompression and fusion performed yesterday. She is known have significant changes at her cervical spine. Patient underwent a C4-5, C5-6, and C6-7 anterior cervical decompression and fusion with corpectomy of C6. Patient states they are doing well postsurgically. Currently does not complain of nausea, vomiting, fever, or chills. Patient states pain has been adequately controlled. Patient is eating without difficulty. She continues to have significant numbness in her hands and fingers bilaterally with some slight improvement postoperatively. She is seen with medicine at the bedside. We are planning for discharge home tomorrow. Medicine states they would currently clear the patient for discharge home tomorrow. We did discuss patient has been seen by neurology and cardiology as well and would need to be cleared by medicine and cardiology prior to discharge home. Physical Exam Cervical Fusion: Status post surgical day number 1 Patient is awake, alert, and oriented 3 Vital signs stable Good chest excursion with deep inspiration and expiration Extrusion Manager strength, thumb strength, interosseous strength, biceps strength, triceps strength, and shoulder strength positive sustained bilaterally Dressing is clean, dry, and intact; no erythema, purulence, or signs of infection Hard cervical collar intact Assessment: C4-5, C5-6, and C6-7 anterior cervical decompression and fusion with corpectomy of C6 Cervical myelopathy Cervical myelomalacia Spinal cord injury C4-5, C5-6, and C6-7 severe cervical stenosis C5 vertebral compression fracture Upper extremity weakness Upper extremity radiculopathy Cervical kyphosis Cervical degenerative disc disease Plan: 1. Ambulate as tolerated; work with Physical Therapy to increase mobilization 2. Continue pain control with oral and IV medications as needed; wean off IV medications in anticipation for discharge. We'll plan to prescribe hydrocodone and cyclobenzaprine at the time of discharge 3. Patient may shower with Optifoam dressing; patient may remove Optifoam in 3 days and shower without a dressing at that time 4. Medical management can continue to manage patient for patient's other medical diagnosis 5. We will continue to follow the patient closely; if the patient continues to improve and her symptoms are adequately controlled, we'll plan for discharge home tomorrow pending clearance by medicine, cardiology, and neurology 6. Patient can follow-up with Michael Quintero PA-C or Dr. Brant Phillips at [facility] in 1 week following discharge
--- NOTE | 2022-11-16 08:48 | P.PN ---
Subjective Progress Note Date: 11/16/22 Principal diagnosis: Upper extremity weakness This is a 72-year-old female presented to the emergency room with progressive cervical neck pain with limited mobility and numbness and tingling down the arms into the hands bilaterally, she was ongoing for the last 2 weeks. Imaging revealed severe cervical stenosis and vertebral compression fracture of C5. Yesterday patient underwent anterior cervical decompression with discectomy and fusion with Dr. Phillips. Patient is seen this morning sitting up in bed with hard cervical collar in place. She does still report some mild numbness in bilateral hands. Pain is controlled. Objective - Vital Signs Vital signs: Vital Signs Temp 98.3 F 11/16/22 05:15 Pulse 62 11/16/22 05:15 Resp 16 11/16/22 05:15 BP 151/96 11/16/22 05:15 Pulse Ox 97 11/16/22 05:15 FiO2 Intake & Output 11/15/22 11/16/22 11/16/22 18:59 06:59 18:59 Intake Total 1328 530 Output Total 320 Balance 1008 530 Intake: IV 200 Intake, IV Titration 50 50 Amount ceFAZolin 2 gm In Sodium 50 50 Chloride 0.9% 50 ml @ 100 mls/hr IVPB Q8HR [facility] Rx# :[id number] Oral 1078 480 Output: Urine 120 Estimated Blood Loss 200 Other: Voiding Method Toilet Toilet # Voids 3 2 - Constitutional General appearance: Present: cooperative, no acute distress - EENT Eyes: Present: EOMI, PERRLA - Neck Details: Hard cervical collar in place Neck: Present: normal ROM. Absent: lymphadenopathy, rigidity - Respiratory Respiratory: bilateral: CTA - Cardiovascular Rhythm: regular Heart sounds: normal: S1, S2 - Gastrointestinal General gastrointestinal: Present: soft. Absent: tenderness - Integumentary Integumentary: Present: normal, normal turgor - Psychiatric Psychiatric: Present: A&O x's 3, appropriate affect, intact judgment & insight - Labs CBC & Chem 7: 11/13/22 18:28 11/13/22 18:28 Assessment and Plan (1) Cervical radiculopathy Current Visit: Yes Status: Acute Code(s): M54.12 - RADICULOPATHY, CERVICAL REGION SNOMED Code(s): 14890900 (2) Cervicalgia Current Visit: Yes Status: Acute Code(s): M54.2 - CERVICALGIA SNOMED Code(s): 17672205 (3) Bilateral arm weakness Current Visit: Yes Status: Acute Code(s): R29.898 - OTH SYMPTOMS AND SIGNS INVOLVING THE MUSCULOSKELETAL SYSTEM SNOMED Code(s): 98552622504220328 (4) Hypertension Current Visit: Yes Status: Acute Code(s): I10 - ESSENTIAL (PRIMARY) HYPERTENSION SNOMED Code(s): 77086001 Plan: Maintain pain control. Continue hard cervical collar Anticipate discharge within the next 24-48 hours. Patient seen and evaluated by nurse practitioner, physician in agreement with plan
[2022-11-16 09:34] LABS: Basophils % (A) 0 %; Eosinophils % (A) 0 %; HGB 10.6 gm/dL (11.4-16.0); Lymphocytes # (A) 1.3 k/uL (1.0-4.8); Lymphocytes % (A) 13 %; MCH 29.7 pg (25.0-35.0); MCHC 34.2 g/dL (31.0-37.0); MCV 86.8 fL (80.0-100.0); Mean Platelet Volume 7.4; Monocytes # (A) 0.6 k/uL (0-1.0); Monocytes % (A) 5 %; Neutrophils # (A) 8.1 k/uL (1.3-7.7); Neutrophils % (A) 80 %; Platelet Count 316 k/uL (150-450); RBC 3.57 m/uL (3.80-5.40); RDW 13.3 % (11.5-15.5); WBC 10.1 k/uL (3.8-10.6)
[2022-11-16 09:58] LABS: African American GFR (CKD) >90 (>60 ml/min/1.73 sqM); Anion Gap 7 mmol/L; Blood Urea Nitrogen 13 mg/dL (7-17); Calcium 9.3 mg/dL (8.4-10.2); Carbon Dioxide 26 mmol/L (22-30); Chloride 106 mmol/L (98-107); Glucose 106 mg/dL (74-99); Non-African American GFR(CKD) >90 (>60 ml/min/1.73 sqM); Potassium 3.8 mmol/L (3.5-5.1); Sodium 139 mmol/L (137-145)
--- NOTE | 2022-11-16 14:08 | P.PN ---
Subjective Progress Note Date: 11/16/22 The patient is a very pleasant 72-year-old female patient with a past medical history significant for hypertension and dyslipidemia presented to the hospital complaining of bilateral hand numbness and neck discomfort. She was in her usual state of health until last night when she woke up from sleep complaining of numbness affecting both arms/hands. That was associated with pain in the neck. No pain in the chest. No shortness of breath. No dizziness or lightheadedness and no feeling of heart racing or fluttering and no presyncope or syncope. No symptoms of slurred speech and no upper or lower extremity weakness. Further investigation was performed including EKG showing sinus mechanism with nonspecific ST and T wave abnormalities and also one set of cardiac enzymes came in to be unremarkable with a chest x-ray did not show any acute abnormality. Computed tomography scan of the brain showed chronic changes. The CTA of the neck showed severe stenosis about 70% involving the right internal carotid artery. The patient has no history of CAD and she does have hypertension and dyslipidemia. 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 The examination is remarkable for stable vital signs with regular rhythm and soft systolic murmur at the right upper sternal border was clear breathing sounds bilaterally and no carotid bruit and no lower extremity edema noted. Neurology service has been consulted to see the patient. 10/27 Patient has a hard cervical collar in place. She states she is feeling a little bit better. She continues to have numbness and tingling in her extremities. She denies having any chest pain. Telemetry is a sinus rhythm. Blood pressure remains slightly elevated 171/89, heart rate in the 70s, pulse ox 97% on room air. Repeat blood work reveals WBC 10.1, hemoglobin 10.6. Potassium 3.8, creatinine 0.58. Echocardiogram reveals normal LV systolic function, normal RV systolic function, ilng-do-ovmyonye mitral regurgitation, ejvi-fk-twifipac tricuspid regurgitation Physical Examination Gen: This is a 72-year-old female. She is sitting up in bed and appears to be comfortable. HEENT: Head is atraumatic, normocephalic. Pupils equal, round. Sclerae is anicteric. NECK: Supple. LUNGS: Clear to auscultation. No wheezes or rhonchi. No intercostal retractions. HEART: Regular rate and rhythm. Soft systolic murmur. ABDOMEN: Soft. No tenderness. EXTREMITIES: No pedal edema. No calf tenderness. NEUROLOGICAL: Patient is awake, alert and oriented x3. Assessment Bilateral arm numbness status post cervical decompression and fusion. Hypertension Dyslipidemia Carotid atherosclerosis Plan Ruled out acute coronary syndrome and severe CAD Continue patient's current medications, would not be aggressive in changing blood pressure medications at this time Cardiology will sign off and follow on an as-needed basis. Patient may follow up with Dr. Wilson in the office in one to 4 weeks. Nurse practitioner note has been reviewed, I agree with the documented findings and plan of care. Patient was seen and examined. Objective - Vital Signs Vital signs: Vital Signs Temp 98.3 F 11/16/22 05:15 Pulse 62 11/16/22 05:15 Resp 16 11/16/22 05:15 BP 151/96 11/16/22 05:15 Pulse Ox 96 11/16/22 09:07 FiO2 21 11/16/22 09:07 Intake & Output 11/15/22 11/16/22 11/16/22 18:59 06:59 18:59 Intake Total 1328 530 Output Total 320 Balance 1008 530 Intake: IV 200 Intake, IV Titration 50 50 Amount ceFAZolin 2 gm In Sodium 50 50 Chloride 0.9% 50 ml @ 100 mls/hr IVPB Q8HR [facility] Rx# :[id number] Oral 1078 480 Output: Urine 120 Estimated Blood Loss 200 Other: Voiding Method Toilet Toilet # Voids 3 2 1 - Labs CBC & Chem 7: 11/16/22 08:03 11/16/22 08:03 Labs: Abnormal Lab Results - Last 24 Hours (Table) 11/16/22 Range/Units 08:03 RBC 3.57 L (3.80-5.40) m/uL Hgb 10.6 L (11.4-16.0) gm/dL Hct 31.0 L (34.0-46.0) % Neutrophils # 8.1 H (1.3-7.7) k/uL
[2022-11-17] MEDS: HYDROmorphone 1 MG/ML 1 ML SYRINGE IVP PRN ×2 (00:56→04:40)
[2022-11-17] MEDS: methylPREDNISolone SOD SUCCI 125 MG/2 ML VIAL IV SCH (00:57)
[2022-11-17] MEDS: CYCLOBENZAPRINE 10 MG TAB PO PRN (06:39)
[2022-11-17] MEDS: PANTOPRAZOLE 40 MG TABLET PO SCH (06:39)
[2022-11-17] MEDS: METOPROLOL TARTRATE 25 MG TAB PO SCH (08:31)
[2022-11-17] MEDS: amLODIPine 5 MG TAB PO SCH (08:31)
[2022-11-17] MEDS: oxyCODONE-APAP 10-325MG 1 EACH TAB PO SCH (08:31)
[2022-11-17] MEDS: ATORVASTATIN 20 MG TAB PO SCH (08:31)
[2022-11-17] MEDS: MULTIVITAMINS, THERA 1 EACH TAB PO SCH (08:31)
[2022-11-17] MEDS: HEPARIN SODIUM,PORCINE/PF 5,000 UNIT/0.5 ML SYRINGE SQ SCH (08:32)
[2022-11-17] MEDS: SENNOSIDES-DOCUSATE SODIUM 1 EACH TAB PO SCH (08:39)
--- NOTE | 2022-11-17 08:51 | P.PN ---
Progress Note - Text Progress Note Date: 11/17/22 Orthopedic Spine History of present illness: Patient is a pleasant 72-year-old female who is seen at the bedside following anterior cervical decompression and fusion performed Wednesday. She is known have significant changes at her cervical spine. Patient underwent a C4-5, C5-6, and C6-7 anterior cervical decompression and fusion with corpectomy of C6. Patient states they are doing well postsurgically. Currently does not complain of nause a, vomiting, fever, or chills. Patient states pain has been adequately controlled. Patient is eating without difficulty. She continues to have significant numbness in her hands and fingers bilaterally with some slight improvement postoperatively. Patient has been doing well with physical therapy. Case management states she does not qualify for shower bench or bedside commode. Patient has been discussed with medicine today. They're planning for discharge home today. Patient is under pain management contract with Dr. Mccarty. We discussed we will not plan to prescribe narcotic medications and she may continue with oxycodone as prescribed by Dr. Mccarty as needed for pain control. Physical Exam Cervical Fusion: Status post surgical day number 2 Patient is awake, alert, and oriented 3 Vital signs stable Good chest excursion with deep inspiration and expiration Fiberglass Finisher strength, thumb strength, interosseous strength, biceps strength, triceps strength, and shoulder strength positive sustained bilaterally Dressing is clean, dry, and intact; no erythema, purulence, or signs of infection Hard cervical collar intact Assessment: C4-5, C5-6, and C6-7 anterior cervical decompression and fusion with corpectomy of C6 Cervical myelopathy Cervical myelomalacia Spinal cord injury C4-5, C5-6, and C6-7 severe cervical stenosis C5 vertebral compression fracture Upper extremity weakness Upper extremity radiculopathy Cervical kyphosis Cervical degenerative disc disease Plan: 1. Ambulate as tolerated; work with Physical Therapy to increase mobilization 2. Continue pain control with oral oxycodone as prescribed by Dr. Mccarty. We will not plan to prescribe narcotic medications. 3. Patient may shower with Optifoam dressing; patient may remove Optifoam in 3 days and shower without a dressing at that time 4. Medical management can continue to manage patient for patient's other medical diagnosis; medicine is planning for discharge home today 5. Patient has been able to work with physical therapy and has been doing well. Case management states patient does not qualify for a bedside commode or above toilet seat riser. 6. From an orthopedic spine standpoint, patient is clear for discharge home. Patient can follow-up with Michael Quintero PA-C or Dr. Brant Phillips at [facility] in 1 week following discharge 7. Prescription is written, signed, and provided to case management to obtain replacement pads for her [place] hard cervical collar. 8. We discussed in significant detail patient must keep her hard cervical collar intact at all times.
--- NOTE | 2022-11-17 08:54 | P.DS ---
Providers Date of admission: 11/13/22 20:51 Attending physician: Flex Jackson Consults: 11/13/22 20:48 Consult Physician Routine Consulting Provider: Mica Norris Consult Reason/Comments: arm weakness Do you want consulting provider notified?: Yes Consult Physician Routine Consulting Provider: Inez Phillips Consult Reason/Comments: c4-5 stenosis, arms weak Do you want consulting provider notified?: Yes 11/13/22 23:55 Consult Physician Routine Consulting Provider: [facility] Consult Reason/Comments: 70% stenosis of carotid Do you want consulting provider notified?: Yes, Notify in am Primary care physician: Flex Jackson - Discharge Diagnosis(es) (1) Cervical radiculopathy Current Visit: Yes Status: Acute (2) Cervicalgia Current Visit: Yes Status: Acute (3) Bilateral arm weakness Current Visit: Yes Status: Acute (4) Hypertension Current Visit: Yes Status: Acute Hospital Course: This 72-year-old female who was originally admitted for progressive cervical neck pain and numbness and tingling down bilateral arms into the hands. She underwent an anterior cervical decompression with discectomy and fusion with Dr. Phillips this admission. She is seen this morning sitting up in bed, pain is well- controlled. Hard cervical collar in place. She's been cleared by cardiology and surgery for discharge. Does follow with Dr. Mccarty as an outpatient for pain management, patient to continue to follow his pain management recommendations. Patient seen and evaluated by nurse practitioner, physician in agreement with plan Plan - Discharge Summary Discharge Rx Participant: No New Discharge Prescriptions: Continue oxyCODONE-APAP 10-325MG [Percocet 10-325 mg] 1 tab PO QID Atorvastatin [Lipitor] 20 mg PO DAILY 30 Days #30 tab amLODIPine [Norvasc] 5 mg PO DAILY 30 Days #30 tab Multivitamins, Thera [Multivitamin (formulary)] 1 tab PO DAILY Metoprolol Tartrate [Lopressor] 75 mg PO BID Discharge Medication List oxyCODONE-APAP 10-325MG [Percocet 10-325 mg] 1 tab PO QID 07/23/21 [History] Atorvastatin [Lipitor] 20 mg PO DAILY 30 Days #30 tab 07/25/21 [Rx] amLODIPine [Norvasc] 5 mg PO DAILY 30 Days #30 tab 07/25/21 [Rx] Metoprolol Tartrate [Lopressor] 75 mg PO BID 11/13/22 [History] Multivitamins, Thera [Multivitamin (formulary)] 1 tab PO DAILY 11/13/22 [History] Follow up Appointment(s)/Referral(s): Jacques Wilson MD [STAFF PHYSICIAN] - 4 Weeks Michael Quintero PAC [PHYSICIAN HOUSING LIAISON] - 1 Week (Patient may follow-up with Michael Quintero PA-C or Dr. Brant Phillips at [facility] in 1 week following discharge. ) Flex Jackson MD [Primary Care Provider] - 3 Days Activity/Diet/Wound Care/Special Instructions: 1. Patient may shower with Optifoam dressing intact. 2. Patient may remove Optifoam dressing in 3 days and shower without a dressing at that time. 3. Patient must keep hard cervical collar intact at all times 4. Patient should refrain from driving until at least after their first follow- up appointment in the office. 5. Patient should avoid excessive cervical flexion, extension, and side bending; avoid overhead lifting; no lifting greater than 10 pounds 6. Take medications as prescribed 7. Patient should avoid anti-inflammatory medications over the next 6 weeks postoperatively 8. Do not soak in tub Discharge Disposition: HOME WITH HOME HEALTH SERVICES
[2022-11-17 11:41] VITALS: BP 187/95; PULSE 76; TEMP 96.3
== END 2022-11-17 11:50 | disposition home health service (06) | DRG 471 ==
LOC: EC 18:01 → 4SSUR 20:51 → 3SCARD 11-14 00:35
PROVIDERS: ADMIT Family Medicine; ATTEND Family Medicine
PROC: 0RG20A0 Fusion of 2 or more Cervical Vertebral Joints with Interbody Fusion Device, Anterior Approach, Anterior Column, Open Approach (ICD-10-PCS; 2022-11-15)
PROC: 0PB30ZZ Excision of Cervical Vertebra, Open Approach (ICD-10-PCS; 2022-11-15)
PROC: 0PU30JZ Supplement Cervical Vertebra with Synthetic Substitute, Open Approach (ICD-10-PCS; 2022-11-15)
PROC: 0PB30ZX Excision of Cervical Vertebra, Open Approach, Diagnostic (ICD-10-PCS; 2022-11-15)
PROC: 0RB30ZZ Excision of Cervical Vertebral Disc, Open Approach (ICD-10-PCS; 2022-11-15)
PROC: 0RG2070 Fusion of 2 or more Cervical Vertebral Joints with Autologous Tissue Substitute, Anterior Approach, Anterior Column, Open Approach (ICD-10-PCS; principal; 2022-11-15 08:00)
DX: M43.12 Spondylolisthesis, cervical region (principal); G95.19 Other vascular myelopathies; G95.89 Other specified diseases of spinal cord; M50.021 Cervical disc disorder at C4-C5 level with myelopathy; G37.9 Demyelinating disease of central nervous system, unspecified; M48.52XA Collapsed vertebra, not elsewhere classified, cervical region, initial encounter for fracture; S14.109A Unspecified injury at unspecified level of cervical spinal cord, initial encounter; M41.52 Other secondary scoliosis, cervical region; I10 Essential (primary) hypertension; I08.1 Rheumatic disorders of both mitral and tricuspid valves; I65.21 Occlusion and stenosis of right carotid artery; G89.29 Other chronic pain; M25.519 Pain in unspecified shoulder; M48.02 Spinal stenosis, cervical region; M54.12 Radiculopathy, cervical region; E78.5 Hyperlipidemia, unspecified; K44.9 Diaphragmatic hernia without obstruction or gangrene; Z91.81 History of falling; Z87.81 Personal history of (healed) traumatic fracture; Z87.891 Personal history of nicotine dependence; Z88.2 Allergy status to sulfonamides; Z79.899 Other long term (current) drug therapy; Z79.891 Long term (current) use of opiate analgesic; Z79.82 Long term (current) use of aspirin
CPT/HCPCS: 36415; 70450; 70496; 70498; 71046; 72020; 72040; 72050; 72141; 80048; 80053; 82550; 84484; 85025; 85610; 85730; 88307; 88311; 93005; 93306; 94760; 96374; 99285

== ENCOUNTER → 2022-12-04 | Outpatient (CLI) | payer MEDICARE ==
--- NOTE | 2022-12-04 16:28 | XR ---
EXAMINATION TYPE: XR lumbosacral spine min 4V DATE OF EXAM: 12/04/2022 3:04 PM INDICATION: Patient age:Female; 72 years old; Reason for study: M51.36 Lumbar DDD; COMPARISON: Radiograph 05/18/2016 TECHNIQUE: Frontal, lateral , bilateral oblique and coned in L5-S1 lateral views of the spine. FINDINGS: No evidence of any acute osseous pathology. Compression deformity of the L1 vertebral body which is stable from 2016. There is scoliosis changes to the spine levoscoliosis apex L4. There is re trolisthesis of L3 on L4. Mild scattered disc space narrowing. Multilevel marginal osteophyte formati on throughout the visualized spine. There is facet joint arthropathy throughout the spine. Scattered at least neural foraminal stenosis, evaluation is limited due to scoliosis and degeneration. IMPRESSION: 1. L1 vertebral body compression deformity which is stable from 2016 2. Moderate to severe multilevel disc degeneration with multilevel neural foraminal stenosis.
== END | disposition home or self-care (01) ==
LOC: RADXRMAIN 14:41
PROVIDERS: ATTEND Physical Medicine & Rehabilitation
DX: M51.36 Other intervertebral disc degeneration, lumbar region (principal); M99.73 Connective tissue and disc stenosis of intervertebral foramina of lumbar region
CPT/HCPCS: 72110

== ENCOUNTER → 2023-05-26 | Outpatient (CLI) | payer MEDICARE ==
--- NOTE | 2023-05-27 09:32 | BD ---
EXAMINATION TYPE: Axial Bone Density DATE OF EXAM: 05/26/2023 CLINICAL HISTORY: 72 years old Female. ICD-10 CODE: Z12.31 SCREEN MAMMO, N95.1 MENOPAUSAL AND FEMALE C Height: 60 Weight: 95 FRAX RISK QUESTIONS: Family History (Parent hip fracture): no History of Fracture in Adulthood: yes bilat wrists, 7 in lumbar spine, c-spine Secondary Osteoporosis: yes 3. Menopause before 45: 42 Rheumatoid Arthritis: no RISK FACTORS HISTORY OF: Spine Fracture: yes, c-spine, l-spine When: 2009 History of Wrist Fracture: yes bilat When: long ago Surgery to Spine/Hip(right/left)/Wrist (right/left): yes, c spine lumbar spine bilat wrists When: long ago Family History of Osteoporosis: yes mat. Grandma Active: yes Diet low in dairy products/other sources of calcium: no Postmenopausal woman: yes Lost more than 2 inches in height since high school: yes, was 69 Frequent falls: no Poor Health: no MEDICATIONS: Additional Medications: yes hbp meds, cholesterol EXAM MEASUREMENTS: Bone mineral densitometry was performed using the Medigram System. Bone mineral density about the R hip (g/cm2): 0.600 Bone mineral density about the L hip (g/cm2): 0.609 T Score values are as follows: -----R Neck: -3.2 -----L Neck: -3.1 -----R Total: -3.2 -----L Total: -3.2 Z Score values are as follows: -----R Neck: -1.0 -----L Neck: -0.9 -----R Total: -1.2 -----L Total: -1.1 Bone mineral density baseline FRAX%s: The graph provided illustrates a 27.5 % chance for a major osteoporotic fx and a 11.1 % chanc e for the hips probability for fx in 10 years time. IMPRESSION: Osteoporosis (T Score less than -2.5). There is increased fracture risk and therapy is usually indicated based on age. Re-Screen 1-2 years. NOTE: T-SCORE=SD OF THE YOUNG ADULT MEAN.
--- NOTE | 2023-05-27 20:49 | MM ---
Reason for Exam: Screening (asymptomatic). Last mammogram was performed 6 year(s) and 7 month(s) ago. Patient History: Menarche at age 15. Patient has no children. Postmenopausal. 2006, Benign Excisional Biopsy on the right side. 12/24/2016, Benign Core Biopsy on the left side. Risk Values: Marisa 5 year model risk: 2.9%. NCI Lifetime model risk: 8.3%. Prior Study Comparison: 12/26/1996 Bilateral Special View Mammogram, [facility]. 11/19/2016 Bilateral Screening Mammogram, [facility]. 11/19/2016 Left Diagnostic Mammogram, [facility]. Tissue Density: The breast tissue is heterogeneously dense. This may lower the sensitivity of mammography. Findings: Analyzed By CAD. Redemonstrated regional microcalcifications bilateral posterior upper-outer quadrants. Microclip on the left from prior calcification sampling. There is no suspicious group of microcalcifications or new suspicious mass in either breast. Overall Assessment: Benign, BI-RAD 2 Management: Screening Mammogram of both breasts in 1 year. . Patient should continue monthly self-breast exams. A clinical breast exam by your physician is recommended on an annual basis. This exam should not preclude additional follow-up of suspicious palpable abnormalities. Note on Marisa scores and lifetime risk: 1. A Marisa score greater than 3% is considered moderate risk. If this is the case, consider specialist referral to assess eligibility for a risk reducing agent. 2. If overall lifetime risk for the development of breast cancer is 20% or higher, the patient may qualify for future screening with alternating mammogram and breast MRI. Electronically signed and approved by: Mary Simmons M.D. Radiologist
== END | disposition home or self-care (01) ==
LOC: RADMAMWWP 15:56
PROVIDERS: ATTEND Family Medicine
DX: Z12.31 Encounter for screening mammogram for malignant neoplasm of breast (principal); M81.0 Age-related osteoporosis without current pathological fracture; N95.1 Menopausal and female climacteric states
CPT/HCPCS: 77063; 77067; 77080

== ENCOUNTER → 2024-02-25 | Outpatient (CLI) | payer MEDICARE ==
--- NOTE | 2024-02-25 19:22 | MR ---
EXAMINATION TYPE: MR cervical spine wo con DATE OF EXAM: 02/25/2024 6:03 PM CLINICAL INDICATION:Female, 73 years old with history of M79.12 MYALGIA OF AUXILIARY MUSCLES, HEAD AN D NECK; PHH, Neck pain that radiates down arms, history of surgery COMPARISON: 10/17/2022. TECHNIQUE: Multi planar, multi sequence imaging was performed utilizing: T1-weighted, T2-weighted, an d turbo inversion recovery imaging of the cervical spine. IV Contrast: (none if empty) FINDINGS: Similar abnormal alignment of the cervical spine with increased cord signal. There is interval surgic al changes with decompression of the spinal cord. There remains increased signal in the spinal cord a t the level of C5. Spinal canal is patent. Multilevel facet joint uncovertebral joint arthropathy wit h neural foraminal stenosis which is poorly evaluated due to abnormal alignment of the cervical spine . There is thought to be moderate stenosis at C4-C5 bilaterally. IMPRESSION: * Similar deformity to the cervical spine with post fixation changes. * Cord edema and spinal canal narrowing have improved from prior. * There remains myelomalacia at the level of and C5-C6. * Degeneration changes in the spine with neural foraminal stenosis at multiple levels evaluation castillo ited due to abnormal alignment of the neck at these levels. Possible moderate stenosis at C4-C5 bilat erally.
== END | disposition home or self-care (01) ==
LOC: RADMRIMAIN 17:17
PROVIDERS: ATTEND Orthopaedic Surgery Orthopaedic Surgery of the Spine
DX: M79.12 Myalgia of auxiliary muscles, head and neck (principal); G95.89 Other specified diseases of spinal cord; R60.9 Edema, unspecified; M41.86 Other forms of scoliosis, lumbar region; M47.816 Spondylosis without myelopathy or radiculopathy, lumbar region; M51.36 Other intervertebral disc degeneration, lumbar region; Z47.89 Encounter for other orthopedic aftercare; Z98.1 Arthrodesis status; M54.12 Radiculopathy, cervical region; M25.532 Pain in left wrist; R29.6 Repeated falls; R20.2 Paresthesia of skin
CPT/HCPCS: 72141

== ENCOUNTER → 2024-02-29 | Outpatient (CLI) | payer MEDICARE ==
[2024-02-29] MEDS: ZOLEDRONIC ACID 5 MG in SODIUM CHLORIDE 0.9% 100 ML IV NR (14:23)
[2024-02-29] MEDS: SODIUM CHLORIDE 0.9% 500 ML 500 ML in EMPTY BAG 1 BAG IV PRN (14:23)
[2024-02-29 14:30] VITALS: BP 137/92; PULSE 69; RESP 16; TEMP 98.2
== END ==
LOC: PROCWHC3 14:09
PROVIDERS: ATTEND Family Medicine
DX: M81.0 Age-related osteoporosis without current pathological fracture (principal); Z88.2 Allergy status to sulfonamides
CPT/HCPCS: 96365; J3489

== ENCOUNTER → 2024-12-29 | Outpatient (CLI) | payer MEDICARE ==
--- NOTE | 2024-12-30 09:44 | XR ---
EXAMINATION TYPE: XR Hip Bilateral Complete DATE OF EXAM: 12/29/2024 3:45 PM COMPARISON: 10/09/2021. CLINICAL INDICATION: Female, 74 years old with history of [id number] LBP,KRISTOFER HIP PAIN; [facility], p ain TECHNIQUE: XR Hip Bilateral Complete; Frontal and lateral views FINDINGS: No evidence for acute process, joint dislocation or significant soft tissue swelling. Osteo phyte formation of the superior acetabulum of the hip. There is mild joint space narrowing. Probable calcified fibroid projecting over the pelvis. IMPRESSION: 1. No evidence for acute process. 2. Mild hip osteoarthrosis. [facility], , 12/30/2024 9:42 AM
--- NOTE | 2024-12-30 10:44 | XR ---
EXAMINATION TYPE: XR lumbar spine 2 or 3V DATE OF EXAM: 12/29/2024 3:45 PM COMPARISON: 12/04/2022 CLINICAL INDICATION: Female, 74 years old with history of [id number] LBP,KRISTOFER HIP PAIN; [facility], p ain TECHNIQUE: XR lumbar spine 2 or 3V - Frontal, lateral and coned in L5-S1 lateral views of the spine. FINDINGS: No severe degeneration changes spine with scoliosis apex right L1 and T12. There is rick thony deformity of the L1 vertebral body with greater than 50% height loss. No evidence of fracture gi goldy limitations of exam. Scattered osteophytes to the trochanter probably present. IMPRESSION: 1. No acute fracture visualized within the limitations of exam.. 2. Severe degeneration of the spine. 3. Compression deformity of L1 vertebral body may be mildly progressed from prior. Consider CT imagin g for comparison. [facility], , 12/30/2024 10:42 AM
== END | disposition home or self-care (01) ==
LOC: RADXRYALE 15:13
PROVIDERS: ATTEND Family Medicine
DX: M48.56XA Collapsed vertebra, not elsewhere classified, lumbar region, initial encounter for fracture (principal); M51.369 Other intervertebral disc degeneration, lumbar region without mention of lumbar back pain or lower extremity pain; M16.0 Bilateral primary osteoarthritis of hip; M51.360 Other intervertebral disc degeneration, lumbar region with discogenic back pain only; M47.816 Spondylosis without myelopathy or radiculopathy, lumbar region
CPT/HCPCS: 72100; 73521

== ENCOUNTER → 2025-01-10 | Outpatient (CLI) | payer MEDICARE ==
--- NOTE | 2025-01-10 15:56 | CT ---
EXAMINATION TYPE: CT lumbar spine wo con DATE OF EXAM: 01/10/2025 3:11 PM COMPARISON: None CLINICAL INDICATION: Female, 74 years old with history of S32.010A WEDGE COMPRESSION FRACTURE OF FIRS T LUMBA; PHH, increasing low back pain, right hip pain TECHNIQUE: Unenhanced CT of the lumbar spine was performed. Bone and soft tissue window settings are submitted as well as coronal and sagittal reconstructions. CT DLP: 334.[address] CTDI: mGy Automated exposure control for dose reduction was used. FINDINGS: There is marked diffuse osteopenia. There is moderate levoscoliosis of the lumbar spine. There is a moderate compression fracture of L1 with minimal retropulsion and no significant compromis e of the spinal canal. The remaining lumbar vertebral segments are normal in height and alignment. There is multilevel moderate to severe degenerative disease from T11 through S1 where there is modera te to severe disc space narrowing, vacuum phenomenon and spondylosis. There are no large disc herniat ions. Secondary to disc bulge, facet hypertrophy and thickening of the ligamentum flavum, there is a mild s hilda stenosis at the L4-5 level. There is mild bony neural foraminal encroachment at the L5-S1 level bilaterally. There is mild facet degeneration at the L4-5 and L5-S1 levels. Visualized sacrum and SI joints are normal. IMPRESSION: 1. Moderate levoscoliosis lumbar spine. 2. Moderate compression fracture of L1 with minimal retropulsion. 3. Moderate to marked multilevel degenerative disc disease from T11 through S1. 4. Mild spinal stenosis at the L4-5 level. 5. Mild facet arthropathy at the L4-5 and L5-S1 levels. 6. Marked diffuse osteopenia. 7. Mild bony neural foraminal encroachment at the L5-S1 level bilaterally. [facility], , 01/10/2025 3:54 PM
== END | disposition home or self-care (01) ==
LOC: RADCTMAIN 14:33
PROVIDERS: ATTEND Family Medicine
DX: S32.010A Wedge compression fracture of first lumbar vertebra, initial encounter for closed fracture (principal); M51.360 Other intervertebral disc degeneration, lumbar region with discogenic back pain only; M48.061 Spinal stenosis, lumbar region without neurogenic claudication; M47.816 Spondylosis without myelopathy or radiculopathy, lumbar region; M47.817 Spondylosis without myelopathy or radiculopathy, lumbosacral region; M85.88 Other specified disorders of bone density and structure, other site
CPT/HCPCS: 72131